=== PATIENT | female | born 1985 | race Caucasian/White ===

== ENCOUNTER 2016-05-27 13:12 | Observation (INO) | payer OTHER ==
[~2016-05-27] VITALS: Ht 149.9 cm; Wt 100.9 kg
--- NOTE | 2016-05-27 16:59 | DIAGNOSTIC IMAGING REPORT ---
PROCEDURE: XR CHEST 1 VIEW INDICATION: SHORTNESS OF BREATH TECHNIQUE: Portable AP view 04:37 p.m. COMPARISON: None. FINDINGS: Lungs are clear. Heart and mediastinum are normal. Thorax is normal. IMPRESSION: 1. Negative chest.
--- NOTE | 2016-05-27 19:23 | DIAGNOSTIC IMAGING REPORT ---
PROCEDURE: CTA THORAX WITH CONTRAST INDICATION: DYSPNEA, TACHYCARDIA, initial encounter TECHNIQUE: 60 ml of Isovue 370 was injected intravenously and axial images were obtained of the entire thorax with 3D sagittal and coronal MIP reconstructions. COMPARISON: Chest x-ray 05/27/2016 FINDINGS: No evidence of pulmonary emboli. No infiltrates. 3 mm right middle lobe ground-glass nodule (image 61), indeterminate but likely postinflammatory. Mild mediastinal, bilateral hilar and subcarinal adenopathy. No effusion. No dissection or aneurysm. Normal coronaries. Heart size is normal. Visualized upper abdomen is unremarkable. Bones are unremarkable. IMPRESSION: 1. No evidence of prior emboli, aortic dissection or aneurysm 2. Mild adenopathy, likely reactive 3. Results discussed with Dr. Razo
--- NOTE | 2016-05-27 19:47 | ED CLINICAL REPORT ---
Clinical Report - Physicians/Mid Levels [facility] [address] [place] [address] 05/27/2016 13:14 Patient: BERHANE WOLFE Time Seen: 13:22. Arrived- By private vehicle. Historian- patient. HISTORY OF PRESENT ILLNESS Chief Complaint: DYSPNEA, WHEEZING and HISTORY OF ASTHMA. This started yesterday and is still present. The dyspnea is described as moderate. The patient has had a cough. No sputum production, orthopnea or chest pain or discomfort. See nurses notes for current asthma threapy. Asthma triggers: allergies, infections and irritants. Takes asthma medications. Similar symptoms previously: Recent medical care: Not recently seen/assessed. REVIEW OF SYSTEMS No sore throat, nasal discharge, sinus drainage, fever or chills. No muscle aches, headache, palpitations, calf pain or nausea. No abdominal pain, diarrhea, black stools, difficulty with urination or excessive urination. No skin rash, enlarged lymph nodes, pedal edema, vomiting or bloody stools. No joint pain. All systems otherwise negative, except as recorded above. PAST HISTORY Problems: Asthma. Additional Surgeries: no known surgeries. Medications: Albuterol inhaler prn. Allergies: Sulfa Antibiotics. SOCIAL HISTORY Never smoker. History of drug use: marijuana. No alcohol use. ADDITIONAL NOTES The nursing notes have been reviewed. PHYSICAL EXAM Vital Signs: 05/27/2016 13:22 BP: 120/41. HR: 142. RR: 26. O2 saturation: 95%. Temp: 99.2 F. Pain level now: 0/10. Have been reviewed. Appearance: Alert. Patient in moderate distress. Eyes: Pupils equal, round and reactive to light. Eyes normal inspection. ENT: Nose normal. Neck: Normal inspection. CVS: Normal heart rate and rhythm. Heart sounds normal. Pulses normal. Respiratory: Mild respiratory distress with accessory muscle use. Speaks short phrases. Moderately prolonged expirations. Moderately decreased air movement diffusely over both lungs. Expiratory mild bilateral wheezes diffusely. Abdomen: Soft and nontender. Back: Normal inspection. Skin: Skin warm and dry. Normal skin color. No rash. Normal skin turgor. Extremities: Extremities exhibit normal ROM. No lower extremity edema. Neuro: Oriented X 3. No motor deficit. No sensory deficit. LABS, X-RAYS, AND EKG EKG: EKG time: (1701). No acute ischemia. Rate: 136. Tachycardia. Normal P waves. Normal DOMINGA. Normal QRS complex. Normal axis. Normal ST and T waves, QT and QTc. Prior EKG unavailable. The study has been interpreted contemporaneously by me. The study has been independently viewed by me. The EKG appears to be a good tracing. I agree with and confirm the computer reading of the EKG. Rhythm Strip #1: Time: (1310). Rate= 152. Sinus tachycardia. Regular rhythm. Narrow QRS complexes. No ectopy. Conduction normal. Normal ST segments and T waves. The study was interpreted by me. Chest X-ray: No acute disease. Normal lung markings present. Normal heart size. Mediastinum normal. Great vessels normal. Soft tissues normal. No infiltrate. No fracture. No bony lesion present. Views: AP (portable). Technique: good. The X-rays were independently viewed by me, interpreted by the radiologist and contemporaneously by me and discussed with the radiologist. Prior films were not available for comparison. Laboratory Tests: Serum Qualitative: (CHETAN: 05/27/2016 13:25) ( [facility] 05/27/2016 18:23) Final results Test Result Flag Units (Reference) , SERUM NEGATIVE CBC w Diff: (CHETAN: 05/27/2016 13:25) ( MsgRcvd 05/27/2016 16:43) Final results Test Result Flag Units (Reference) WHITE BLOOD COUNT 19.4 H K/uL (4.5-11.5) RED BLOOD COUNT 4.63 M/uL (4.00-5.20) HEMOGLOBIN 12.7 gm/dL (12.0-16.0) HEMATOCRIT 38.8 % (36.0-46.0) MEAN CELL VOLUME 84 fL (80-100) MEAN CORPUSCULAR HGB 27 pg (26-34) MEAN CORPUSCULAR HGB CONC 33 g/dL (31-37) RED CELL DISTRIBUTION WIDTH 14.3 % (11.6-14.8) PLATELET COUNT 553 H K/uL (150-400) NEUTROPHIL % 89.1 H % (50-75) LYMPH % 7.7 L % (25-40) MONO % 2.4 L % (3-14) EOSINOPHIL % 0.3 % (0-4) BASOPHIL % 0.5 % (0-2) [id number]: (CHETAN: 05/27/2016 13:25) ( [facility] 05/27/2016 16:49) Final results Test Result Flag Units (Reference) D-DIMER QUANTITATIVE < 0.27 L ug/mLFEU (0.27-0.52) The primary value of this quantitative assay relates toits negative predictive value (i.e. exclusion) of pulmonaryembolism/deep vein thrombosis/DIC.Elevated levels of d-dimer may also occur with:, age, cancer, inflammation, liver disease,post-op, infection, hematoma, coronary disease, peripheralarteriopathy, bleeding disorders and thrombolytic treatment.Results should be correlated with other clinical andradiological data.Testing Methodology: Latex Immunoassay Lactate, Serum: (CHETAN: 05/27/2016 18:05) ( [facility] 05/27/2016 19:22) Final results Test Result Flag Units (Reference) LACTIC ACID 4.1 H mmol/L (0.4-2.0) CRITICAL RESULTS CALLEDCalled to DUYEN MCGOVERN IN ED 05/27/161920Were 2 patient identifiers used? YWas the result read back? Y Troponin-I: (CHETAN: 05/27/2016 18:05) ( [facility] 05/27/2016 19:13) Final results Test Result Flag Units (Reference) TROPONIN I 0.09 ng/mL (0.00-1.5) TROPONIN REFERENCE RANGE:<0.1 NEGATIVE0.1-1.5 INDETERMINANT>1.5 POSITIVE CMP: (CHETAN: 05/27/2016 13:25) ( [facility] 05/27/2016 16:55) Final results Test Result Flag Units (Reference) GLUCOSE 130 H mg/dL (70-110) BUN 9 mg/dL (7-18) CREATININE 0.8 mg/dL (0.6-1.3) Estimated GFR >60 mL/min Estimated GFR- >60 mL/min Note: Persistent reduction over 3 months in eGFR<60 mL/min/1.73 m2 defines CKD. Patients with eGFR values>=60 mL/min/1.73 m2 may also have CKD if evidence ofpersistent proteinuria. Additional information may be foundat [email or web address].org. SODIUM 140 mmol/L (136-145) POTASSIUM 4.2 mmol/L (3.5-5.1) CHLORIDE 104 mmol/L (98-107) CARBON DIOXIDE 23 mmol/L (21-32) CALCIUM 8.7 mg/dL (8.5-10.1) TOTAL PROTEIN 7.4 g/dL (6.4-8.2) ALBUMIN 3.3 g/dL (3.3-5.0) BILIRUBIN, TOTAL 0.1 mg/dL (0.0-1.0) ALKALINE PHOSPHATASE 83 U/L (46-116) AST (SGOT) 25 U/L (15-37) ALT (SGPT) 34 U/L (12-78) Rapid Influenza Screen: (CHETAN: 05/27/2016 18:15) ( MsgRcvd 05/27/2016 18:34) Final results SPECIMEN DESCRIPTION: SWAB Test Result Flag Units (Reference) RAPID INFLUENZA SCREEN DATE: 05/27/16 INFLUENZA A: NEGATIVE SCREEN FOR INFLUENZA A INFLUENZA B: NEGATIVE SCREEN FOR INFLUENZA B . Pulse Oximetry: 05/27/2016 13:22 O2 saturation: 95%. (FIO2 - room air). Interpretation: normal. PROGRESS AND PROCEDURES Course of Care: PT was treated with a duoneb, as well as two albuterol nebs, with great improvement in her lung exam and work of breathing. However, pt's heart rate remained in the 130's to 150's, and pt stated she did not feel well. I did not feel this degree of tachycardia was due solely to the neb treatments. She was given doses of Ativan, which didn't seem to help. She was given IV fluids without improvement, and worked up with labs and a chest x-ray. She was found to have a WBC count of 19.4 and a lactate level of 4.1. Pt had reported not feeling ill prior to this event, and had no fever or obvious source of sepsis. I did feel she should be admitted for observation, at least, and Dr. Patel was agreeable. Critical care performed (60 minutes). Time is exclusive of separately billable procedures. Time includes: direct patient care, patient reassessment, coordination of patient care, interpretation of data (laboratory data, pulse oximetry, chest xrays and cardiac output measurements), review of patient's medical records, medical consultation and documentation of patient care- see progress notes. The patient required critical care due to the acute impairment of vital organ systems (cardiovascular and respiratory) and a high probability of imminent and life threatening deterioration. Multiple emergent and urgent interventions were required to prevent sudden life threatening deterioration. Family counseled in person several times regarding the patient's serious condition, test results, diagnosis and need for admission. Concerns were addressed. Old medical records reviewed. Disposition: Admitted to Acute Care. Condition: serious. CLINICAL IMPRESSION Lactic acidosis. Moderate persistent asthma with an acute exacerbation. Sinus tachycardia. (Electronically signed by Tiny Razo MD 06/01/2016 14:12)
--- NOTE | 2016-05-27 19:47 | ED ORDER SUMMARY ---
..... Patient: BERHANE WOLFE OrderSheet [facility] VisitID: [id number] [place] [address] 31y, F Registration Date/Time: 05/27/2016 ORDER SHEET Weight: 86.1 kg (stated) Allergies: Sulfa Antibiotics GENERAL ORDERS: Chest 1V Urgent (16:32 05/27/2016 Magdalena CESAR) (Ack 16:34 LTapper) (16:38 SStone R.N.) Pharmaceutical Operator (Continuous) (16:32 05/27/2016 Magdalena CESAR) (16:37 SStone R.N.) CBC w Diff Urgent (16:32 05/27/2016 Magdalena CESAR) (Ack 16:34 LTapper) (16:38 SStone R.N.) CMP Urgent (16:32 05/27/2016 Magdalena CESAR) (Ack 16:34 LTapper) (16:38 SStone R.N.) D-Dimer Urgent (16:32 05/27/2016 Magdalena CESAR) (Ack 16:34 LTapper) (16:38 SStone R.N.) Pulse oximeter (16:32 05/27/2016 Magdalena CESAR) (16:37 SStone R.N.) EKG - ER Stat (16:32 05/27/2016 Magdalena CESAR) (Ack 16:34 LTapper) (17:07 RKaruga) Rapid Influenza Screen (Nasal Pharyngeal) (swab) Urgent (18:11 05/27/2016 Magdalena CESAR) (18:21 SStone R.N.) (Ack 18:21 LTapper) CTA Thorax w Cont (No) (N/A) Urgent (18:12 05/27/2016 Magdalena CESAR) (Ack 18:21 LTapper) (18:37 JRomanelli R.N.) Troponin-I Urgent (18:13 05/27/2016 Magdalena CESAR) (Ack 18:21 LTapper) (18:39 SStone R.N.) Serum Qualitative Urgent (18:13 05/27/2016 Magdalena CESAR) (Ack 18:21 LTapper) (18:39 SStone R.N.) Lactate, Serum Urgent (18:13 05/27/2016 Magdalena CESAR) (Ack 18:21 LTapper) (18:39 SStone R.N.) Blood Culture (No) (N/A) Urgent (19:26 05/27/2016 Magdalena CESAR) (Ack 19:49 LTapper) (21:02 JRomanelli R.N.) UA-Culture if indicated Urgent (19:05/27/2016 Magdalena CESAR) (Ack 19:49 LTapper) (21:02 JRomanelli R.N.) PCT (Procalcitonin) Urgent (19:45 05/27/2016 Magdalena CESAR) (Ack 19:49 LTapper) (21:02 JRomanelli R.N.) Monoscreen Urgent (19:49 05/27/2016 Magdalena CESAR) (Ack 19:49 LTapper) (21:02 JRomanelli R.N.) Culture, Strep Screen Urgent (19:49 05/27/2016 Magdalena CESAR) (Ack 19:49 LTapper) (20:05 JRomanelli R.N.) MEDICATION ORDERS: DuoNeb Neb Tx 1 unit dose (NOW) (13:31 05/27/2016 Magdalena CESAR) (13:47 JZiglar) Albuterol Neb Tx 2 unit doses (NOW) (13:05/27/2016 Magdalena CESAR) (13:48 JZiglar) DuoNeb Neb Tx 1 unit dose (NOW) (19:45 05/27/2016 Magdalena CESAR) (Ack 19:53 HSoule) IV FLUIDS: Solu-MEDROL IV 125 mg (NOW) (13:32 05/27/2016 Magdalena CESAR) (13:38 SStone R.N.) Ativan IV 1 mg (HIGH ALERT MEDICATION, NOW) (13:39 05/27/2016 Magdalena CESAR) (Ack 13:56 SStone R.N.) (14:04 SStone R.N.) IV NS : initial bolus 1000 mL (1000 mL/hr), then none - (NOW) (16:32 05/27/2016 Magdalena CESAR) (16:39 SStone R.N.) Ativan IV 1 mg (HIGH ALERT MEDICATION, NOW) (16:32 05/27/2016 Magdalena CESAR) (16:39 SStone R.N.) Morphine IV 4 mg (HIGH ALERT MEDICATION, NOW) (18:14 05/27/2016 Magdalena CESAR) (Ack 18:38 SStone R.N.) (18:39 SStone R.N.) Solu-MEDROL IV 125 mg (NOW) (19:45 05/27/2016 Magdalena CESAR) (Ack 19:48 HSoule) (19:53 HSoule) IV NS : initial bolus 1000 mL (1000 mL/hr), then 1000 mL/hr (NOW) (19:50 05/27/2016 Magdalena CESAR) (Ack 19:53 HSoule) (20:04 Edgardo R.N.) ORDER SHEET NOTES: [Electronically signed by Prince Guillory R.N. (23:54 05/27/2016)] [Electronically signed by Tiny Razo MD (14:12 06/01/2016)] [Electronically locked/signed by Prince Guillory R.N. (23:54 05/27/2016)]
--- NOTE | 2016-05-27 19:47 | ED NURSING NOTES ---
Clinical Report - Nurses [facility] [place] [address] 05/27/2016 13:14 Patient: BERHANE WOLFE TRIAGE Triage time 13:22. Acuity: LEVEL 3. Chief Complaint: SHORTNESS OF BREATH, DIFFICULTY BREATHING and "ASTHMA ATTACK". --13:27 Yenny Nicole R.N. 13:22 05/27/16. BP: 120/41 (large adult cuff). HR: 142. RR: 26. O2 saturation: 95%. Temp: 99.2 F. Pain level now: 0/10. --13: Yenny Nicole R.N. Weight: 86.1 kg stated. Height/Length: 59 inches Per Patient. BMI: 38.4. --13: Yenny Nicole R.N. Medications Albuterol inhaler prn. --13:27 Yenny Nicole R.N. Allergies Sulfa Antibiotics. --13:27 Yenny Nicole R.N. History Arrived by private vehicle. Historian: patient. Accompanied by (asthma attack since yesterday, ran out of albuterol.). ( difficulty catching her breath.). This started yesterday. She has had wheezing. ( sore throat). PAST MEDICAL HX: Asthma. SOCIAL HX: History of drug use: marijuana. (marijuana daily). No alcohol use. No infectious disease exposure. SELF HARM ASSESSMENT: A self harm assessment was performed. The patient answered "no" to the question "Do you have thoughts of harming or killing yourself?". FALL RISK ASSESSMENT: Fall risk assessment completed. No fall risk identified. NUTRITIONAL RISK ASSESSMENT: The nutritional risk assessment revealed no deficiencies. FUNCTIONAL ASSESSMENT: Functional assessment: no impairments noted. LEARNING NEEDS ASSESSMENT: The learning needs assessment revealed no barriers. SKIN INTEGRITY ASSESSMENT: Skin integrity risk assessment completed. No skin integrity risk identified. --13:27 Yenny Nicole R.N. PROBLEMS: Asthma . --13:23 Yenny Nicole R.N. Interventions To treatment room. --13:27 Yenny Nicole R.N. PHYSICAL ASSESSMENT To room via wheelchair. GENERAL / NEURO / PSYCH: Alert. Oriented X 4. Appears anxious. RESPIRATORY: Moderate respiratory distress. The patient can speak a few words at a time. Accessory muscle use. Chest nontender. Wheezing present. CVS: Cardiac rhythm: sinus tachycardia. SKIN: Skin is warm. Skin is diaphoretic. --13:29 Yenny Nicole R.N. NURSING PROGRESS NOTES 13:28 05/27/2016 Site #1 started via IV in the right antecubital space with an 18g angiocath; one attempt. Blood drawn: rainbow set. Labeled in the presence of the patient and sent to the lab. Saline lock flushed with 10 mL saline. --13:28 Yenny Nicole R.N. Oxygen administered. Monitoring of patient in place. Blood samples drawn. Patient gowned. Head of bed elevated. Reassurance given. Call light placed in reach. Patient waiting for evaluation. --13:28 Yenny Nicole R.N. ( RT/MD at bedside.). --13:30 Yenny Nicole R.N. 13:38 05/27/2016 SOLU-MEDROL (MethylPREDNISolone Sodium Succ) IVP 125 mg given over 2 minute(s) via site #1. --13:38 Yenny Nicole R.N. 13:47 05/27/2016 Duoneb (Ipratropium-Albuterol) Neb TX Nebulizer 1 unit dose given. Given by the respiratory therapist. Allergies verified and confirmed 5 rights. Jonathan Wang --13:47 Jonathan Wang 13:48 05/27/2016 Albuterol Neb TX Nebulizer 2 unit dose given. Given by the respiratory therapist. Allergies verified and confirmed 5 rights. Jonathan Wang --13:48 Jonathan Wang 14:03 05/27/2016 Ativan (LORazepam) IVP 1 mg given over 2 minute(s) via site #1. Allergies verified, confirmed 5 rights and sedative warning given to the patient. IV patency established. IV site checked: no pain, redness, or swelling. IV flushed thoroughly pre- and post-medication administration (Pt. advised she will not be able to drive on [place]. Pt states her can pick her up.). --14:04 Yenny Nicole R.N. ( ativan admnistered. Pt. now resting quietly post medication.). --14:15 Yenny Nicole R.N. 14:00 05/27/16. BP: 110/48. HR: 153. RR: 24. O2 saturation: 97%. --14:15 Yenny Nicole R.N. Reassessment after intervention and medication administered. She is resting quietly. CVS: Cardiac rhythm: sinus tachycardia. SKIN: Skin color within normal limits. --14:16 Yenny Nicole R.N. 15:30 05/27/16. BP: 114/62. HR: 145. RR: 26. O2 saturation: 98%. Temp: 98.5 F. --15:50 Yenny Nicole R.N. Overall patient status is improved- she states feels better. Call light placed in reach. --15:50 Yenny Nicole R.N. 15:10 05/27/16. BP: 115/60. HR: 147. RR: 26. O2 saturation: 95%. --15:52 Yenny Nicole R.N. 16:24 05/27/2016 Started bag #1 1000 mL IV Fluids IV NS (Saline); at 1000 mL/hr over 1 hour(s) via site #1 --16:39 Yenny Nicole R.N. 16:39 05/27/2016 Ativan (LORazepam) IVP 1 mg given over 2 minute(s) via site #1. --16:39 Yenny Nicole R.N. 16:30 05/27/16. BP: 107/73. HR: 139. RR: 26. O2 saturation: 92%. --16:48 Yenny Nicole R.N. 16:48 05/27/16. O2 saturation: 94% at 2 liters/minute. --16:48 Yenny Nicole R.N. ( patient resting quietly, had reported increased difficulty in "catching her breath" after dose of Ativan patient is doing better.). --16:50 Yenny Nicole R.N. EKG time: (17:01). EKG was performed by a tech and shown to the ED physician. --17:03 Katherin Blanchard ( pt. assisted to the bathroom. C/O sob on return, sats 90%. Placed on 2l nc sats up to 95%.). --17:35 Yenny Nicole R.N. 17:10 05/27/16. BP: 113/58. HR: 141. O2 saturation: 94% at 2 liters/minute. --18:16 Yenny Nicole R.N. 16:40 05/27/16. BP: 113/54. HR: 137. RR: 22. O2 saturation: 95% at 2 liters/minute. --18:17 Yenny Nicole R.N. 16:25 05/27/16. BP: 107/73. HR: 140. RR: 29. O2 saturation: 96%. Temp: 98.7 F. --18:17 Yenny Nicole R.N. ( Rapid flu swab sent to lab.). --18:20 Yenny Nicole R.N. 18:27 05/27/16. BP: 123/73. HR: 141. O2 saturation: 94% at 2 liters/minute. --18:27 Yenny Nicole R.N. 18:29 05/27/2016 Morphine IVP 4 mg given over 2 minute(s) via site #1. Allergies verified, confirmed 5 rights and sedative warning given. IV patency established. IV site checked: no pain, redness, or swelling. IV flushed thoroughly pre- and post-medication administration. --18:39 Yenny Nicole R.N. 18:41 05/27/2016 IV Fluids IV NS Discontinued: bag #1 infused. Total amount infused: 1000 mL. IV patency established. IV site checked: no pain, redness, or swelling. IV flushed thoroughly. --18:41 Yenny Nicole R.N. 19:16 05/27/16. BP: 115/59. HR: 140. RR: 20. O2 saturation: 96% on room air. --19:16 Milady Thompson Critical value relayed to ED by Lab. Critical value received by Milady. Lactate level: 4.1. Critical value read back. Verified lab result and patient ID. ED physician notifed of critical value. --19:22 JayAlban beachnah ( Assisted up to restroom. Patient short of breath upon ambulation. Provider notified). --19:35 Milady Thompson 19:44 05/27/16. BP: 107/62. HR: 134. RR: 18. O2 saturation: 92% on room air. Temp: 99.2 F. Pain level now: 10. Additional comments: Body aches, "everywhere.". --19:46 Prince Guillory R.N. 19:53 05/27/2016 SOLU-MEDROL (MethylPREDNISolone Sodium Succ) IVP 125 mg given over 2 minute(s) via site #1. Allergies verified and confirmed 5 rights. IV patency established. IV site checked: no pain, redness, or swelling. IV flushed thoroughly pre- and post-medication administration. IVP given by RN. --19:53 Alban Thompsonnah <<STRICKEN ENTRY-- 19:59 05/27/2016 Started bag #1 1000 mL IV Fluids IV NS (Saline); at 999 mL/hr over 60 minute(s) via site #1 via IV pump. Allergies verified and confirmed 5 rights. IV patency established. IV site checked: no pain, redness, or swelling. IV flushed thoroughly pre- and post-medication administration. --20:04 Prince Guillory R.N. --END STRIKE>> Correction. --21:05 Prince Guillory R.N. 19:59 05/27/2016 Started bag #2 1000 IV Fluids IV NS (Saline); at 999 mL/hr over 60 minute(s) via site #1 via IV pump. Allergies verified and confirmed 5 rights. IV patency established. IV site checked: no pain, redness, or swelling. IV flushed thoroughly pre- and post-medication administration. --21:05 Prince Guillory R.N. 20:59 05/27/2016 IV Fluids IV NS Bag Change: bag #2 infused. Total amount infused: 1000. STARTED bag #3 (1000 mL) at 999 mL/hr via IV pump. Confirmed 5 rights. IV patency established. IV site checked: no pain, redness, or swelling. IV flushed thoroughly. --21:04 Prince Guillory R.N. 21:12 05/27/2016 Site #[address] upon admission; patent, no pain and no signs of infection or infiltration. Flushed with 10 mL saline; flushes easily. --23:49 Prince Guillory R.N. 21:12 05/27/2016 IV Fluids IV NS Continued: upon admission at the rate of 1000 mL/hr. 900 mL remaining bag #3. IV patency established. IV site checked: no pain, redness, or swelling. IV flushed thoroughly. --23:49 Prince Guillory R.N. DISPOSITION / DISCHARGE 21:06 05/27/16. BP: 119/60. HR: 134. RR: 18. O2 saturation: 96% on nasal cannula at 2 liters/minute. Temp: 99.2 F (oral). Pain level now: 0/10. --21:08 Prince Guillory R.N. Departure time: 2111. --23:46 Prince Guillory R.N. 21:12. Admitted to Acute Care. Transported via stretcher. Report was given to a nurse via a phone call. Report included patient's care, treatment, medications, reviewed medication reconcilliation, and condition (including any recent changes or anticipated changes). All questions were answered. Report was acknowledged and care was transferred. Patient's personal items; items were placed in belongings bag and transported with the patient. --23:47 Prince Guillory R.N. Locked/Released at 05/27/2016 23:54 by Prince Guillory R.N.
--- NOTE | 2016-05-27 19:47 | ED ORDER SUMMARY ---
..... Patient: BERHANE WOLFE OrderSheet [facility] VisitID: [id number] [place] [address] 31y, F Registration Date/Time: 05/27/2016 ORDER SHEET Weight: 86.1 kg (stated) Allergies: Sulfa Antibiotics GENERAL ORDERS: Chest 1V Urgent (16:32 05/27/2016 Magdalena CESAR) (Ack 16:34 LTapper) (16:38 SStone R.N.) New Car Make Ready Mechanic (Continuous) (16:32 05/27/2016 Magdalena CESAR) (16:37 SStone R.N.) CBC w Diff Urgent (16:32 05/27/2016 Magdalena CESAR) (Ack 16:34 LTapper) (16:38 SStone R.N.) CMP Urgent (16:32 05/27/2016 Magdalena CESAR) (Ack 16:34 LTapper) (16:38 SStone R.N.) D-Dimer Urgent (16:32 05/27/2016 Magdalena CESAR) (Ack 16:34 LTapper) (16:38 SStone R.N.) Pulse oximeter (16:32 05/27/2016 Magdalena CESAR) (16:37 SStone R.N.) EKG - ER Stat (16:32 05/27/2016 Magdalena CESAR) (Ack 16:34 LTapper) (17:07 RKaruga) Rapid Influenza Screen (Nasal Pharyngeal) (swab) Urgent (18:11 05/27/2016 Magdalena CESAR) (18:21 SStone R.N.) (Ack 18:21 LTapper) CTA Thorax w Cont (No) (N/A) Urgent (18:12 05/27/2016 Magdalena CESAR) (Ack 18:21 LTapper) (18:37 JRomanelli R.N.) Troponin-I Urgent (18:13 05/27/2016 Magdalena CESAR) (Ack 18:21 LTapper) (18:39 SStone R.N.) Serum Qualitative Urgent (18:13 05/27/2016 Magdalena CESAR) (Ack 18:21 LTapper) (18:39 SStone R.N.) Lactate, Serum Urgent (18:13 05/27/2016 Magdalena CESAR) (Ack 18:21 LTapper) (18:39 SStone R.N.) Blood Culture (No) (N/A) Urgent (19:26 05/27/2016 Magdalena CESAR) (Ack 19:49 LTapper) (21:02 JRomanelli R.N.) UA-Culture if indicated Urgent (19:05/27/2016 Magdalena CESAR) (Ack 19:49 LTapper) (21:02 JRomanelli R.N.) PCT (Procalcitonin) Urgent (19:45 05/27/2016 Magdalena CESAR) (Ack 19:49 LTapper) (21:02 JRomanelli R.N.) Monoscreen Urgent (19:49 05/27/2016 Magdalena CESAR) (Ack 19:49 LTapper) (21:02 JRomanelli R.N.) Culture, Strep Screen Urgent (19:49 05/27/2016 Magdalena CESAR) (Ack 19:49 LTapper) (20:05 JRomanelli R.N.) MEDICATION ORDERS: DuoNeb Neb Tx 1 unit dose (NOW) (13:31 05/27/2016 Magdalena CESAR) (13:47 JZiglar) Albuterol Neb Tx 2 unit doses (NOW) (13:05/27/2016 Magdalena CESAR) (13:48 JZiglar) DuoNeb Neb Tx 1 unit dose (NOW) (19:45 05/27/2016 Magdalena CESAR) (Ack 19:53 HSoule) IV FLUIDS: Solu-MEDROL IV 125 mg (NOW) (13:32 05/27/2016 Magdalena CESAR) (13:38 SStone R.N.) Ativan IV 1 mg (HIGH ALERT MEDICATION, NOW) (13:39 05/27/2016 Magdalena CESAR) (Ack 13:56 SStone R.N.) (14:04 SStone R.N.) IV NS : initial bolus 1000 mL (1000 mL/hr), then none - (NOW) (16:32 05/27/2016 Magdalena CESAR) (16:39 SStone R.N.) Ativan IV 1 mg (HIGH ALERT MEDICATION, NOW) (16:32 05/27/2016 Magdalena CESAR) (16:39 SStone R.N.) Morphine IV 4 mg (HIGH ALERT MEDICATION, NOW) (18:14 05/27/2016 Magdalena CESAR) (Ack 18:38 SStone R.N.) (18:39 SStone R.N.) Solu-MEDROL IV 125 mg (NOW) (19:45 05/27/2016 Magdalena CESAR) (Ack 19:48 HSoule) (19:53 HSoule) IV NS : initial bolus 1000 mL (1000 mL/hr), then 1000 mL/hr (NOW) (19:50 05/27/2016 Magdalena CESAR) (Ack 19:53 HSoule) (20:04 Edgardo R.N.) ORDER SHEET NOTES: [Electronically signed by Prince Guillory R.N. (23:54 05/27/2016)] [Electronically signed by Tiny Razo MD (14:12 06/01/2016)] [Electronically locked/signed by Prince Guillory R.N. (23:54 05/27/2016)]
--- NOTE | 2016-05-27 20:24 | Progress Note ---
Subjective General 26 y.o female with hx of cough really bad and hx of asthma. Smokes a lot of THC and likely flare of asthma related to this. Will have her admitted with elevated WBC and lactic acid and then monitor on labs, blood cx and re check in am. Similar episode 1 month ago at [facility] per patient.
--- NOTE | 2016-05-27 21:23 | HISTORY AND PHYSICAL ---
ADMITTED: 05/27/2016 CHIEF COMPLAINT: 1. Shortness of breath 2. Wheeze HISTORY OF PRESENT ILLNESS: The patient states that yesterday she started coughing and then she started having increased wheezing and shortness of breath. She used her nebulizer and inhalers multiple times and had severe cough around 2:00 o'clock this p.m., could not breathe, and so she went into the emergency department for evaluation. She says about a month ago she had similar symptoms and ended up admitted to the hospital at [facility] for about 3 days. She denies any previous history of intubation; however, while she was at [facility], she had about 3 ABGs, she states, and also workup that was uneventful, and they essentially did not know what was going on, but she presented just like this. MEDICAL/SURGICAL HISTORY: Past medical history: She has had asthma, kidney stones. Past surgical history: Three C-sections. MEDICATIONS: 1. Albuterol. 2. History of Xanax and then venlafaxine, but both were stopped by her new primary doctor at [facility] recently. ALLERGIES: 1. AMOXICILLIN. 2. PENICILLIN. 3. SULFA. 4. SHELLFISH. SOCIAL HISTORY: She denies alcohol, drugs, or tobacco; however, she is a fairly strong THC smoker. FAMILY HISTORY: Mother is alive and well. Father has diabetes, hypertension, heart disease, and strokes. PRIMARY CARE PHYSICIAN: Her primary doctor is [facility]. REVIEW OF SYSTEMS: She states she has had the cough, shortness of breath, wheezing. She has had anxiety. She denies any fevers or chills. She denies any nausea, vomiting, diarrhea. Otherwise her review of systems is negative. HER CODE STATUS IS FULL. PHYSICAL EXAMINATION: GENERAL: She is an alert female, who is able to talk in full sentences, in no significant distress. VITAL SIGNS: Blood pressure 120/41, heart rate of 142, respirations 26, saturating 95% on 2 liters, her temperature is 99.2. HEENT: Extraocular movements intact. Pupils equal, round, react to light. Oropharynx is clear with moist mucous membranes. NECK: Supple without lymphadenopathy. LUNGS: With coarse breath sounds. Soft wheeze, but great air movement. No significant increased work of breathing on watching her ribs. HEART: Regular rate and rhythm. No murmur. ABDOMEN: Soft, obese, nontender, nondistended. EXTREMITIES: No significant edema. GENITOURINARY: Deferred. RECTAL: Deferred. BREASTS: Deferred. NEUROLOGIC: Cranial nerves II-XII intact. Strength and sensation grossly intact. LAB/IMAGING: EKG shows sinus tachycardia. Chest x-ray is normal. CBC: White count of 19.4, hematocrit 38.8, and platelets of 553. Glucose of 130 , BUN of 9, creatinine is 0.8, sodium 140, potassium 4.2, chloride of 104, HCO3 23, calcium 8.7, total protein 7.4, albumin of 3.3. Bilirubin 0.1, alkaline phosphatase 83, AST of 25, ALT 34. D-dimer less than 0.27. screen negative Procalcitonin less than 0.5. A mono screen was negative. Lactic acid was 4.1. Troponin I was 0.09. CTA shows no evidence of prior emboli, aortic dissection, or aneurysm. Mild adenopathy, reactive, likely. Flu screen was negative for A and B. Urinalysis was negative with a specific gravity of 1.005. IMPRESSION: 1. This is a 31-year-old female, who has a known history of asthma and similar symptoms about a month ago with a large workup and hospitalization and presents to the emergency department today with shortness of breath, wheezing, cannot breathe, and anxiety. I suspect that much of her trigger is likely her marijuana use and discussed this in length and that, if she has to use the marijuana, I do not recommend it because of her anxiety and mental issues, but I would recommend that ingesting over any inhalation as is causing her likely to flare her asthma and her symptoms. 2. Currently, she has significant tachycardia- likely related to her albuterol and anxiety. Will watch at this time no symptoms and hold on tele unless any signs of distress. PLAN: We will treat her with Xopenex and also Atrovent inhalers, and anticipate that she will have improvement in her labs and likely discharge tomorrow as long as she has improved.
[2016-05-27 21:32] VITALS: BP 117/59
--- NOTE | 2016-05-27 22:31 | NUR ---
PT ARRIVED AROUND 0 TO FLOOR VIA GURNEY FROM THE ED. PT IS A&OX3, LS COARSE AND WHEEZY IN THE BASES, HR IS TACHY AT 132 BPM AND BT ACTIVE. NO C/O PAIN OR NAUSEA. AMBUALTING IND AROUND ROOM ON 2L O2. NO SOB CURRENTLY. ADMIT PAPERS COMPLETE. RESTING W/ CALL LIGHT IN REACH.
[2016-05-27 23:32] VITALS: BP 109/59
--- NOTE | 2016-05-28 01:08 | NUR ---
Patient asleep at beginning of shift, sleepy when responding to questions but will follow directions. Denies SOB, wheezing and coarse sounds throughout. 1.5 L NC currently. Ambulated to bathroom well with clear yellow urine. States feeling anxious but can tolerate current level. Bouts of elevated HR today and monitoring status through night. Call light with patient , bed low and locked.
[2016-05-28 03:40] VITALS: BP 115/72
--- NOTE | 2016-05-28 03:53 | NUR ---
PATIENT REMOVED NC STATING THAT IT CAUSED NOSE TO RUN. BEGAN TO C/O PAIN IN R KIDNEY AND URINE SMELLING LIKE CAT PEE. PT FELL ASLEEP PRIOR TO LEAVING ROOM AND IS CURRENTLY SNORING. WCTM PAIN IN KIDNEY AND OTHER SX.
[2016-05-28 06:53] VITALS: BP 123/68
[2016-05-28 10:19] VITALS: BP 136/81
[2016-05-28] MEDS ORDERED: ZITHROMAX250 MG PO (11:27)
--- NOTE | 2016-05-28 11:29 | Provider's Discharge Care Plan ---
Problem, Goal, Plan Problem List 1. Asthma Goals: Improved health/wellness Instructions: Follow up as directed, Take meds as directed 2. Bronchitis Goals: Improved health/wellness, Therapeutic intervention Instructions: Follow up as directed, Take meds as directed 3. Tetrahydrocannabinol (THC) use disorder, mild, abuse Goals: Avoid smoking marijuana Instructions: Follow up as directed 4. Anxiety Goals: Improve disease control Instructions: Follow up as directed, Take meds as directed
[2016-05-28] MEDS ORDERED: ALBUTEROL HFA60 DOSE IN (11:36)
[2016-05-28] MEDS ORDERED: PREDNISONE20 MG PO (11:36)
--- NOTE | 2016-05-28 13:24 | NUR ---
AMBULATED WITH PT ON ROOM AIR AND AFTER WALKING ONE LOOP AROUND, HER SAO2 WAS 95% BUT HER HEARTRATE WASA 140, DR GIBSON NOTIFIED.
[2016-05-28 14:53] VITALS: BP 124/71
--- NOTE | 2016-05-28 15:50 | NUR ---
Patient was discharged, she was walked down wtih her and a factility electrical maintenance technician. She was given all her discharge paper work, perscriptions, and follow up appointment information. All lines/ IV were DC.
--- NOTE | 2016-05-29 01:58 | DISCHARGE SUMMARY ---
ADMIT DATE: 05/27/2016 DISCHARGE DATE: 05/28/2016 ADMISSION DIAGNOSES: 1. Asthmatic exacerbation 2. Marijuana use 3. Chronic sinus tachycardia 4. Anxiety DISCHARGE DIAGNOSES: 1. Asthmatic exacerbation 2. Marijuana use 3. Chronic sinus tachycardia 4. Anxiety 5. Bronchitis BRIEF HISTORY: This is a 31-year-old female who was admitted to [place] approximately 1 month ago with significant elevation in white blood cell count and lactic acid. After being hospitalized for several days on IV antibiotics, no diagnosis was made and the patient was gradually improving on her own and so, therefore, was discharged home without any antibiotics or other interventions. The patient stated that she had initially improved over the last couple of weeks, but then had gotten worse over the last week again, and presented to the emergency department again. She states that she has been coughing, wheezing, and short of breath. She had used her inhalers multiple times overnight and continued to feel like she could not breathe. The patient has continued to smoke marijuana despite the recommendations that she not smoke marijuana upon leaving [place] a month ago. HOSPITAL COURSE: The patient was monitored in the hospital overnight and she was initially hypoxic; however, this resolved and she was no longer hypoxic after only 12 hours of hospitalization. The patient remained tachycardic throughout her entire hospitalization; but after reviewing the records down at [facility], she was tachycardic down there as well. The patient states that she is always tachycardic due to her untreated anxiety. We spoke briefly about her anxiety; however, she states that she has taken all of the regular antianxiety medications. The benzodiazepines work best for her, and her doctor has refused to use them to help control her anxiety. The patient's white blood cell count and lactic acid are actually steadily improving since her hospitalization down at [place]. She states that today on the day of discharge she does feel significantly improved after receiving antibiotics, the albuterol inhalers, and steroids. On physical examination at the time of discharge, blood pressure is 124/71, pulse is 128, respiratory rate is 18, O2 saturation is 96% on room air, T-max is 36.8 degrees Celsius. This is a well-appearing female sitting anxiously in bed. Head is atraumatic, normocephalic. Trachea is midline. Lungs are clear to auscultation bilaterally. Heart S1, S2, regular rhythm, mildly tachycardic. No S3, S4, murmurs, gallops, or rubs. Abdomen is soft, nontender, nondistended without hepatosplenomegaly. No masses. Bowel sounds are active. There is no peripheral edema. DISCHARGE INSTRUCTIONS/MEDICATIONS: 1. Discharge plan: The patient was discharged home with instructions to follow up with her primary care provider within 2 days. She is also advised to return to the emergency department if she feels worse at all. She very adamantly demanded being discharged today. 2. Activity: Up ad arvin. No smoking marijuana. 3. Diet: Regular. 4. Medications: a. Albuterol HFA 90 mcg 2 puffs inhaled q.4 hours p.r.n. wheezing. b. Prednisone 40 mg p.o. daily x5 days. c. Azithromycin 500 mg p.o. once, then 250 mg p.o. daily after that.
--- NOTE | 2016-05-29 01:58 | DISCHARGE SUMMARY ---
ADMIT DATE: 05/27/2016 DISCHARGE DATE: 05/28/2016 ADMISSION DIAGNOSES: 1. Asthmatic exacerbation 2. Marijuana use 3. Chronic sinus tachycardia 4. Anxiety DISCHARGE DIAGNOSES: 1. Asthmatic exacerbation 2. Marijuana use 3. Chronic sinus tachycardia 4. Anxiety 5. Bronchitis BRIEF HISTORY: This is a 31-year-old female who was admitted to [place] approximately 1 month ago with significant elevation in white blood cell count and lactic acid. After being hospitalized for several days on IV antibiotics, no diagnosis was made and the patient was gradually improving on her own and so, therefore, was discharged home without any antibiotics or other interventions. The patient stated that she had initially improved over the last couple of weeks, but then had gotten worse over the last week again, and presented to the emergency department again. She states that she has been coughing, wheezing, and short of breath. She had used her inhalers multiple times overnight and continued to feel like she could not breathe. The patient has continued to smoke marijuana despite the recommendations that she not smoke marijuana upon leaving [place] a month ago. HOSPITAL COURSE: The patient was monitored in the hospital overnight and she was initially hypoxic; however, this resolved and she was no longer hypoxic after only 12 hours of hospitalization. The patient remained tachycardic throughout her entire hospitalization; but after reviewing the records down at [facility], she was tachycardic down there as well. The patient states that she is always tachycardic due to her untreated anxiety. We spoke briefly about her anxiety; however, she states that she has taken all of the regular antianxiety medications. The benzodiazepines work best for her, and her doctor has refused to use them to help control her anxiety. The patient's white blood cell count and lactic acid are actually steadily improving since her hospitalization down at [place]. She states that today on the day of discharge she does feel significantly improved after receiving antibiotics, the albuterol inhalers, and steroids. On physical examination at the time of discharge, blood pressure is 124/71, pulse is 128, respiratory rate is 18, O2 saturation is 96% on room air, T-max is 36.8 degrees Celsius. This is a well-appearing female sitting anxiously in bed. Head is atraumatic, normocephalic. Trachea is midline. Lungs are clear to auscultation bilaterally. Heart S1, S2, regular rhythm, mildly tachycardic. No S3, S4, murmurs, gallops, or rubs. Abdomen is soft, nontender, nondistended without hepatosplenomegaly. No masses. Bowel sounds are active. There is no peripheral edema. DISCHARGE INSTRUCTIONS/MEDICATIONS: 1. Discharge plan: The patient was discharged home with instructions to follow up with her primary care provider within 2 days. She is also advised to return to the emergency department if she feels worse at all. She very adamantly demanded being discharged today. 2. Activity: Up ad arvin. No smoking marijuana. 3. Diet: Regular. 4. Medications: a. Albuterol HFA 90 mcg 2 puffs inhaled q.4 hours p.r.n. wheezing. b. Prednisone 40 mg p.o. daily x5 days. c. Azithromycin 500 mg p.o. once, then 250 mg p.o. daily after that.
--- NOTE | 2016-06-01 14:13 | ED MAR SUMMARY ---
..... Medication Administration Record [facility] [address] [place] [address] Patient: BERHANE WOLFE Visit ID: [id number] 31y, F Weight: 86.1 kg Height/Length: 59 in BMI: 38.4 ALLERGIES: Sulfa Antibiotics Given 13:38 05/27/2016 Yenny Nicole R.N. Medication Administered: SOLU-MEDROL [IVP] (METHYLPREDNISOLONE SODIUM SUCC), Dose: 125 mg IVP over 2 minute(s), Site: #1 right AC. Medication Ordered: Solu-MEDROL IV 125 mg (NOW). Given 13:47 05/27/2016 Jonathan Wang, Medication Administered: DUONEB [NEB TX] (IPRATROPIUM-ALBUTEROL), Dose: 1 unit dose Nebulizer Neb TX. Medication Ordered: DuoNeb Neb Tx 1 unit dose (NOW). Given 13:48 05/27/2016 Jonathan Wang, Medication Administered: ALBUTEROL [NEB TX], Dose: 2 unit dose Nebulizer Neb TX. Medication Ordered: Albuterol Neb Tx 2 unit doses (NOW). Given 14:03 05/27/2016 Yenny Nicole R.N. Medication Administered: ATIVAN [IVP] (LORAZEPAM), Dose: 1 mg IVP over 2 minute(s), Site: #1 right AC. Medication Ordered: Ativan IV 1 mg (HIGH ALERT MEDICATION, NOW). Start 16:24 05/27/2016 Yenny Nicole R.N., Stop 18:41 05/27/2016 Yenny Nicole R.N. Medication Administered: IV NS (SALINE), Dose: IV Fluids over 1 hour(s), Rate: 1000 mL/hr, Dispensed: 1000 mL bag, Site: #1 right AC. Medication Ordered: IV NS : initial bolus 1000 mL (1000 mL/hr), then none - (NOW). Given 16:39 05/27/2016 Yenny Nicole R.N. Medication Administered: ATIVAN [IVP] (LORAZEPAM), Dose: 1 mg IVP over 2 minute(s), Site: #1 right AC. Medication Ordered: Ativan IV 1 mg (HIGH ALERT MEDICATION, NOW). Given 18:29 05/27/2016 Yenny Nicole R.N. Medication Administered: MORPHINE [IVP], Dose: 4 mg IVP over 2 minute(s), Site: #1 right AC. Medication Ordered: Morphine IV 4 mg (HIGH ALERT MEDICATION, NOW). Given 19:53 05/27/2016 Milady Thompson, Medication Administered: SOLU-MEDROL [IVP] (METHYLPREDNISOLONE SODIUM SUCC), Dose: 125 mg IVP over 2 minute(s), Site: #1 right AC. Medication Ordered: Solu-MEDROL IV 125 mg (NOW). Start 19:59 05/27/2016 Prince Guillory RNoreen, Continued Upon Admission 21:12 05/27/2016 Prince Guillory R.N. Medication Administered: IV NS (SALINE), Dose: IV Fluids over 60 minute(s), Rate: 999 mL/hr, Dispensed: 1000 mL bag, Site: #1 right AC. Medication Ordered: IV NS : initial bolus 1000 mL (1000 mL/hr), then 1000 mL/hr (NOW).
--- NOTE | 2016-06-01 14:13 | ED MAR SUMMARY ---
..... Medication Administration Record [facility] [address] [place] [address] Patient: BERHANE WOLFE Visit ID: [id number] 31y, F Weight: 86.1 kg Height/Length: 59 in BMI: 38.4 ALLERGIES: Sulfa Antibiotics Given 13:38 05/27/2016 Yenny Nicole R.N. Medication Administered: SOLU-MEDROL [IVP] (METHYLPREDNISOLONE SODIUM SUCC), Dose: 125 mg IVP over 2 minute(s), Site: #1 right AC. Medication Ordered: Solu-MEDROL IV 125 mg (NOW). Given 13:47 05/27/2016 Jonathan Wang, Medication Administered: DUONEB [NEB TX] (IPRATROPIUM-ALBUTEROL), Dose: 1 unit dose Nebulizer Neb TX. Medication Ordered: DuoNeb Neb Tx 1 unit dose (NOW). Given 13:48 05/27/2016 Jonathan Wang, Medication Administered: ALBUTEROL [NEB TX], Dose: 2 unit dose Nebulizer Neb TX. Medication Ordered: Albuterol Neb Tx 2 unit doses (NOW). Given 14:03 05/27/2016 Yenny Nicole R.N. Medication Administered: ATIVAN [IVP] (LORAZEPAM), Dose: 1 mg IVP over 2 minute(s), Site: #1 right AC. Medication Ordered: Ativan IV 1 mg (HIGH ALERT MEDICATION, NOW). Start 16:24 05/27/2016 Yenny Nicole R.N., Stop 18:41 05/27/2016 Yenny Nicole R.N. Medication Administered: IV NS (SALINE), Dose: IV Fluids over 1 hour(s), Rate: 1000 mL/hr, Dispensed: 1000 mL bag, Site: #1 right AC. Medication Ordered: IV NS : initial bolus 1000 mL (1000 mL/hr), then none - (NOW). Given 16:39 05/27/2016 Yenny Nicole R.N. Medication Administered: ATIVAN [IVP] (LORAZEPAM), Dose: 1 mg IVP over 2 minute(s), Site: #1 right AC. Medication Ordered: Ativan IV 1 mg (HIGH ALERT MEDICATION, NOW). Given 18:29 05/27/2016 Yenny Nicole R.N. Medication Administered: MORPHINE [IVP], Dose: 4 mg IVP over 2 minute(s), Site: #1 right AC. Medication Ordered: Morphine IV 4 mg (HIGH ALERT MEDICATION, NOW). Given 19:53 05/27/2016 Milady Thompson, Medication Administered: SOLU-MEDROL [IVP] (METHYLPREDNISOLONE SODIUM SUCC), Dose: 125 mg IVP over 2 minute(s), Site: #1 right AC. Medication Ordered: Solu-MEDROL IV 125 mg (NOW). Start 19:59 05/27/2016 Prince Guillory RNoreen, Continued Upon Admission 21:12 05/27/2016 Prince Guillory R.N. Medication Administered: IV NS (SALINE), Dose: IV Fluids over 60 minute(s), Rate: 999 mL/hr, Dispensed: 1000 mL bag, Site: #1 right AC. Medication Ordered: IV NS : initial bolus 1000 mL (1000 mL/hr), then 1000 mL/hr (NOW).
--- NOTE | 2016-06-01 14:13 | ED DISCHARGE INSTRUCTIONS ---
Patient: BERHANE WOLFE General Instructions [facility] VisitID: [id number] [address] [place] [address] 31y, F Registration Date/Time: 05/27/2016 Lactic acidosis. Moderate persistent asthma with an acute exacerbation. Sinus tachycardia. (Electronically signed by Tiny Razo MD 06/01/2016 14:12)
--- NOTE | 2016-06-01 14:13 | ED MED RECONCILIATION SUMMARY ---
Patient: BERHANE WOLFE Medication Reconciliation Report [facility] VisitID: [id number] [place] [address] 31y, F Registration Date/Time: 05/27/2016 Weight: 86.1 kg Height/Length: 59 in. BMI: 38.4 ALLERGIES: Sulfa Antibiotics The patient's Home Medications are listed below: THE FOLLOWING MEDICATIONS NEED TO BE RECONCILED: Albuterol inhaler prn The source(s) of the original Home Medication information: Not obtained. The following Medications were given to the patient in the Emergency Department: SOLU-MEDROL [IVP] IVP 125 mg, administered: 05/27/2016 1:38:00 PM Duoneb [Neb Tx] Neb TX 1 unit dose, administered: 05/27/2016 1:47:00 PM Albuterol [Neb Tx] Neb TX 2 unit dose, administered: 05/27/2016 1:48:00 PM Ativan [IVP] IVP 1 mg, administered: 05/27/2016 2:03:00 PM IV NS IV Fluids bolus 0, then 1000 mL/hr, administered: 05/27/2016 4:24:00 PM Ativan [IVP] IVP 1 mg, administered: 05/27/2016 4:39:00 PM Morphine [IVP] IVP 4 mg, administered: 05/27/2016 6:29:00 PM SOLU-MEDROL [IVP] IVP 125 mg, administered: 05/27/2016 7:53:00 PM IV NS IV Fluids bolus 0, then 999 mL/hr, administered: 05/27/2016 7:59:00 PM The following Medications were prescribed to the patient: None.
--- NOTE | 2016-06-01 14:13 | ED DISCHARGE INSTRUCTIONS ---
Patient: BERHANE WOLFE General Instructions [facility] VisitID: [id number] [address] [place] [address] 31y, F Registration Date/Time: 05/27/2016 Lactic acidosis. Moderate persistent asthma with an acute exacerbation. Sinus tachycardia. (Electronically signed by Tiny Razo MD 06/01/2016 14:12)
--- NOTE | 2016-06-01 14:13 | ED MED RECONCILIATION SUMMARY ---
Patient: BERHANE WOLFE Medication Reconciliation Report [facility] VisitID: [id number] [place] [address] 31y, F Registration Date/Time: 05/27/2016 Weight: 86.1 kg Height/Length: 59 in. BMI: 38.4 ALLERGIES: Sulfa Antibiotics The patient's Home Medications are listed below: THE FOLLOWING MEDICATIONS NEED TO BE RECONCILED: Albuterol inhaler prn The source(s) of the original Home Medication information: Not obtained. The following Medications were given to the patient in the Emergency Department: SOLU-MEDROL [IVP] IVP 125 mg, administered: 05/27/2016 1:38:00 PM Duoneb [Neb Tx] Neb TX 1 unit dose, administered: 05/27/2016 1:47:00 PM Albuterol [Neb Tx] Neb TX 2 unit dose, administered: 05/27/2016 1:48:00 PM Ativan [IVP] IVP 1 mg, administered: 05/27/2016 2:03:00 PM IV NS IV Fluids bolus 0, then 1000 mL/hr, administered: 05/27/2016 4:24:00 PM Ativan [IVP] IVP 1 mg, administered: 05/27/2016 4:39:00 PM Morphine [IVP] IVP 4 mg, administered: 05/27/2016 6:29:00 PM SOLU-MEDROL [IVP] IVP 125 mg, administered: 05/27/2016 7:53:00 PM IV NS IV Fluids bolus 0, then 999 mL/hr, administered: 05/27/2016 7:59:00 PM The following Medications were prescribed to the patient: None.
== END 2016-05-28 15:45 | disposition home or self-care (01) ==
LOC: ED SRH 13:12 → TRANS SRH 19:57 → ACUTE2 SRH 21:53
PROVIDERS: ADMIT Family Medicine
DX: J45.41 Moderate persistent asthma with (acute) exacerbation (principal); J40 Bronchitis, not specified as acute or chronic; E87.2 Acidosis; F41.9 Anxiety disorder, unspecified
CPT/HCPCS: 29230; 29253; 90004; 90047; 90065; 90074; 90100; 90154; 90159; 90616; 91400; 91556; 92031; 93004; 95059; 98370; 98428

== ENCOUNTER 2016-07-21 20:50 | Emergency (ER) | payer OTHER ==
[~2016-07-21 20:50] MED LIST: ALBUTEROL HFA60 DOSE IN; PREDNISONE20 MG PO; ZITHROMAX250 MG PO
--- NOTE | 2016-07-21 22:51 | ED CLINICAL REPORT ---
Clinical Report - Physicians/Mid Levels [facility] [address] [place] [address] 07/21/2016 20:51 Patient: BERHANE WOLFE Time Seen: 21:05; initial patient contact, initial documentation, patient care assumed. Arrived- By private vehicle. Historian- patient. HISTORY OF PRESENT ILLNESS Chief Complaint: FLANK PAIN. At its maximum, severity described as severe. When seen in the E.D., severity described as severe. Modifying factors- worsened by deep breaths. Not relieved by anything. It is described as "pain" and it is described as located in the left upper quadrant and left abdomen and the left flank. 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 The patient has had nausea. No loss of appetite or diarrhea. She has had vomiting. The vomiting has occurred numerous times. No bilious emesis, feculent emesis, blood-tinged emesis, coffee-grounds emesis or frankly bloody emesis. No unusually dark emesis. No recent travel. Similar symptoms previously: Frequently, worse. ( pain feels similar to her kidney stone pain). Recent medical care: Not recently seen/assessed. REVIEW OF SYSTEMS No constipation, black stools, hematemesis, difficulty with urination or pain with urination. No urinary frequency, bloody stools, fever, chest pain or difficulty breathing. All systems otherwise negative, except as recorded above. PAST HISTORY See nurses notes. PROBLEMS: Sinus Tachycardia. Acidosis. Asthma. --21:06 Lis Carmona, RTapanN. ADDITIONAL SURGERIES: no known surgeries. Kidney stones. SOCIAL HISTORY Former smoker. Occasional alcohol use. History of weekly drug use: marijuana. Recently used drugs today. No recent travel. Is a local resident. FAMILY HISTORY Negative. ADDITIONAL NOTES The nursing notes have been reviewed with agreement regarding the chief complaint, HPI, ROS, PMH and patient medications and allergies. PHYSICAL EXAM Vital Signs: 07/21/2016 21:00 BP: 149/59. HR: 98. RR: 15. O2 saturation: 97%. Pain level now: 7/10. Have been reviewed as normal and appear to be correct. Temperature: 97.9 oral- temperature normal. Appearance: Alert. Oriented X3. No acute distress. Eyes: Pupils equal, round and reactive to light. Eyes normal inspection. Neck: Normal inspection. Neck supple. CVS: Normal heart rate and rhythm. Heart sounds normal. Pulses normal. Respiratory: No respiratory distress. Breath sounds normal. Chest nontender. Abdomen: Soft. Moderate tenderness in the left upper quadrant. Bowel sounds normal. No organomegaly. No mass. Tenderness present. Back: Abnormal inspection. Mild CVA tenderness on the left. Skin: Skin warm and dry. Normal skin color. No rash. Normal skin turgor. Extremities: Extremities exhibit normal ROM. No lower extremity edema. Neuro: Oriented X 3. No motor deficit. No sensory deficit. LABS, X-RAYS, AND EKG Laboratory Tests: UA-Culture if indicated: (CHETAN: 07/21/2016 21:45) ( [facility] 07/21/2016 22:28) IP Test Result Flag Units (Reference) URINE COLOR YELLOW URINE APPEARANCE CLEAR URINE GLUCOSE NEGATIVE (NEGATIVE) URINE BILIRUBIN NEGATIVE (NEGATIVE) URINE KETONE NEGATIVE (NEGATIVE) URINE SPECIFIC GRAVITY 1.025 (1.010-1.030) URINE PH 6.0 (5.0-8.0) URINE PROTEIN TRACE (NEGATIVE) URINE UROBILINOGEN 0.2 EU/dL (0.2-1.0) URINE NITRITE NEGATIVE (NEGATIVE) URINE BLOOD 3+ (NEGATIVE) URINE LEUK ESTERASE NEGATIVE (NEGATIVE) Urine: (CHETAN: 07/21/2016 21:45) ( [facility] 07/21/2016 22:31) Final results Test Result Flag Units (Reference) URINE NEGATIVE CBC w Diff: (CHETAN: 07/21/2016 21:30) ( [facility] 07/21/2016 21:52) Final results Test Result Flag Units (Reference) WHITE BLOOD COUNT 14.3 H K/uL (4.5-11.5) RED BLOOD COUNT 4.52 M/uL (4.00-5.20) HEMOGLOBIN 12.1 gm/dL (12.0-16.0) HEMATOCRIT 36.6 % (36.0-46.0) MEAN CELL VOLUME 81 fL (80-100) MEAN CORPUSCULAR HGB 27 pg (26-34) MEAN CORPUSCULAR HGB CONC 33 g/dL (31-37) RED CELL DISTRIBUTION WIDTH 14.4 % (11.6-14.8) PLATELET COUNT 545 H K/uL (150-400) NEUTROPHIL % 63.5 % (50-75) LYMPH % 28.9 % (25-40) MONO % 4.2 % (3-14) EOSINOPHIL % 2.3 % (0-4) BASOPHIL % 1.1 % (0-2) CMP: (CHETAN: 07/21/2016 21:30) ( MsgRcvd 07/21/2016 22:06) Final results Test Result Flag Units (Reference) GLUCOSE 97 mg/dL (70-110) BUN 10 mg/dL (7-18) CREATININE 0.9 mg/dL (0.6-1.3) Estimated GFR >60 mL/min Estimated GFR- >60 mL/min Note: Persistent reduction over 3 months in eGFR<60 mL/min/1.73 m2 defines CKD. Patients with eGFR values>=60 mL/min/1.73 m2 may also have CKD if evidence ofpersistent proteinuria. Additional information may be foundat www.kidney.org. SODIUM 141 mmol/L (136-145) POTASSIUM 3.9 mmol/L (3.5-5.1) CHLORIDE 104 mmol/L (98-107) CARBON DIOXIDE 26 mmol/L (21-32) CALCIUM 9.2 mg/dL (8.5-10.1) TOTAL PROTEIN 7.6 g/dL (6.4-8.2) ALBUMIN 3.2 L g/dL (3.3-5.0) BILIRUBIN, TOTAL 0.1 mg/dL (0.0-1.0) ALKALINE PHOSPHATASE 93 U/L (46-116) AST (SGOT) 20 U/L (15-37) ALT (SGPT) 31 U/L (12-78) LIPASE 112 U/L (73-393) AMYLASE 55 U/L (25-115) . PROGRESS AND PROCEDURES Course of Care: 21:09 07/21/16. pt has ramos recommending limit ct or imaging, and chronic conditions need tx by pcp, #6 er visits, see report for full details 3175. tx options discussed, whether to do ct or not, pt has had multiple ct's, and has had kidney stones in past, blood work and urine point to possible stone, don't know size or how if multiple, after discussion with pt, pt wants to try and manage her pain at home and if she gets worse to return, pt stated that every time she has been able to pass the stones except once that was about 3 years ago or more. Patient and spouse counseled in person regarding the patient's stable condition, test results and diagnosis. 22:46. Differential Diagnosis: I considered gastritis, peptic ulcer disease, ischemia, gastroesophageal reflux disease, gastroparesis, Crohn's disease, colon cancer, gastroenteritis, pancreatitis, viral syndrome, enterocolitis, urinary tract infection and as a possible cause of vomiting in this patient. This is a partial list of diagnoses considered. (uti, kidney stone). Above considerations are based on history, physical exam, reassessment and laboratory data. Differential diagnosis was discussed with patient. Disposition: Discharged home in good and improved condition (22:51). Condition: good and stable. CLINICAL IMPRESSION Acute left flank pain Intractable vomiting with nausea. No dehydration or volume depletion. Not bilious. INSTRUCTIONS Drink plenty of fluids for the next 24 hours until better. (strain all urine). Warnings: GENERAL WARNINGS: Return or contact your physician immediately if your condition worsens or changes unexpectedly, if not improving as expected, or if other problems arise. SPECIFICALLY, return if you develop pain in the abdomen or pelvis, fever, the inability to keep fluids down, blood in vomitus, blood in diarrhea, fainting or lightheadedness. Prescription Medications: Zofran 4 mg: Take 1 orally every six hours as needed for nausea/vomiting. Dispense ten (10). No refills. Substitution is permissible. Macrobid 100 mg: Take 1 capsule orally every 12 hours for 7 days. No refills. Substitution is permissible. Eldon 5 mg / 325 mg tablets: take 1 to 2 orally every 6 hours as needed for pain. Dispense fifteen (15). No refills. Substitution is permissible. Toradol 10 mg tablets: Take 1 tablet orally every 6 hours as needed. Dispense fifteen (15). No refills. Substitution is permissible. Flomax 0.4 mg: take 1 orally every 24 hours. Dispense fifteen (15). No refills. Substitution is permissible. Follow-up: Follow up with your doctor in two days even if well. Call for an appointment. Summary of care provided to patient. Understanding of the discharge instructions verbalized by patient. (Electronically signed by Ana Torres A.R.N.P. 07/22/2016 15:30)
--- NOTE | 2016-07-21 22:51 | ED ORDER SUMMARY ---
..... Patient: BERHANE WOLFE OrderSheet [facility] VisitID: [id number] [address] [place] [address] 31y, F Registration Date/Time: 07/21/2016 ORDER SHEET Weight: 89.8 kg (stated) Allergies: Sulfa Antibiotics GENERAL ORDERS: CBC w Diff Urgent (21:14 07/21/2016 HBivens A.R.N.P.) (Ack 21:16 SRedmond) (21:41 EHassan R.N.) CMP Urgent (21:14 07/21/2016 HBivens A.R.N.P.) (Ack 21:16 SRedmond) (21:41 EHassan R.N.) UA-Culture if indicated Urgent (21:07/21/2016 HBivens A.R.N.P.) (Ack 21:16 SRedmond) (21:48 EHassan R.N.) Urine Urgent (21:14 07/21/2016 HBivens A.R.N.P.) (Ack 21:16 SRedmond) (21:48 EHassan R.N.) Urine Drug Screen Urgent (21:14 07/21/2016 HBivens A.R.N.P.) (Ack 21:16 SRedmond) (21:41 EHassan R.N.) Amylase Urgent (21:14 07/21/2016 HBivens A.R.N.P.) (Ack 21:16 SRedmond) (21:41 EHassan R.N.) Lipase Urgent (21:14 07/21/2016 HBivens A.R.N.P.) (Ack 21:16 SRedmond) (21:41 EHassan R.N.) MEDICATION ORDERS: Hydrocodone-APAP PO 5/325 mg (NOW, HIGH ALERT MEDICATION) (22:51 07/21/2016 HBivens A.R.N.P.) (23:07 EHassan R.N.) IV FLUIDS: IV NS : initial bolus 1000 mL (1000 mL/hr), then none - (NOW) (21:13 07/21/2016 HBivens A.R.N.P.) (21:42 EHassan R.N.) Toradol IV 30 mg (NOW) (21:13 07/21/2016 HBivens A.R.N.P.) (21:42 EHassan R.N.) Zofran IV 4 mg (NOW) (21:13 07/21/2016 HBivens A.R.N.P.) (21:42 EHassan R.N.) IV Saline Lock (21:14 07/21/2016 HBivens A.R.N.P.) (21:41 EHassan R.N.) ORDER SHEET NOTES: [Electronically signed by Lis Carmona R.N. (23:11 07/21/2016)] [Electronically signed by Ana TorresR.N.P. (15:30 07/22/2016)] [Electronically locked/signed by Lis Carmona R.N. (23:11 07/21/2016)]
--- NOTE | 2016-07-21 22:51 | ED ORDER SUMMARY ---
..... Patient: BERHANE WOLFE OrderSheet [facility] VisitID: [id number] [address] [place] [address] 31y, F Registration Date/Time: 07/21/2016 ORDER SHEET Weight: 89.8 kg (stated) Allergies: Sulfa Antibiotics GENERAL ORDERS: CBC w Diff Urgent (21:14 07/21/2016 HBivens A.R.N.P.) (Ack 21:16 SRedmond) (21:41 EHassan R.N.) CMP Urgent (21:14 07/21/2016 HBivens A.R.N.P.) (Ack 21:16 SRedmond) (21:41 EHassan R.N.) UA-Culture if indicated Urgent (21:07/21/2016 HBivens A.R.N.P.) (Ack 21:16 SRedmond) (21:48 EHassan R.N.) Urine Urgent (21:14 07/21/2016 HBivens A.R.N.P.) (Ack 21:16 SRedmond) (21:48 EHassan R.N.) Urine Drug Screen Urgent (21:14 07/21/2016 HBivens A.R.N.P.) (Ack 21:16 SRedmond) (21:41 EHassan R.N.) Amylase Urgent (21:14 07/21/2016 HBivens A.R.N.P.) (Ack 21:16 SRedmond) (21:41 EHassan R.N.) Lipase Urgent (21:14 07/21/2016 HBivens A.R.N.P.) (Ack 21:16 SRedmond) (21:41 EHassan R.N.) MEDICATION ORDERS: Hydrocodone-APAP PO 5/325 mg (NOW, HIGH ALERT MEDICATION) (22:51 07/21/2016 HBivens A.R.N.P.) (23:07 EHassan R.N.) IV FLUIDS: IV NS : initial bolus 1000 mL (1000 mL/hr), then none - (NOW) (21:13 07/21/2016 HBivens A.R.N.P.) (21:42 EHassan R.N.) Toradol IV 30 mg (NOW) (21:13 07/21/2016 HBivens A.R.N.P.) (21:42 EHassan R.N.) Zofran IV 4 mg (NOW) (21:13 07/21/2016 HBivens A.R.N.P.) (21:42 EHassan R.N.) IV Saline Lock (21:14 07/21/2016 HBivens A.R.N.P.) (21:41 EHassan R.N.) ORDER SHEET NOTES: [Electronically signed by Lis Carmona R.N. (23:11 07/21/2016)] [Electronically signed by Ana TorresR.N.P. (15:30 07/22/2016)] [Electronically locked/signed by Lis Carmona R.N. (23:11 07/21/2016)]
--- NOTE | 2016-07-21 22:51 | ED NURSING NOTES ---
Clinical Report - Nurses [facility] [address] [place] [address] 07/21/2016 20:51 Patient: BERHANE WOLFE TRIAGE Triage time 2100 PM. Acuity: LEVEL 3. Chief Complaint: ABDOMINAL PAIN, NAUSEA and VOMITING. Alert. No acute distress. SEPSIS SCREEN: Sepsis Screen. Negative (no infection suspected/documented). MILKA COMA SCORE: Milka Coma Scale: 15- eyes open spontaneously (4); best verbal response- oriented x 4 (5); best motor response- obeys commands (6). --21:10 Lis Carmona R.N. 21:03 07/21/16. BP: 151/129. HR: 100. RR: 18. O2 saturation: 99%. Temp: 97.9 F. Pain level now: 02/07. --21:10 Lis Carmona R.N. Triage time 21 00 late entry - PM. Acuity: LEVEL 3. Chief Complaint: ABDOMINAL PAIN, NAUSEA and VOMITING. --21:15 Lis Carmona R.N. Weight: 89.8 kg stated. Height/Length: 59 inches Per Patient. BMI: 40. --21:02 Lis Carmona R.N. Medications Albuterol inhaler prn. --21:06 Lis Carmona R.N. Allergies Sulfa Antibiotics. --21:06 Lis Carmona R.N. Medication/allergy information source: the patient. --21:10 Lis Carmona R.N. Medication/allergy information source: the patient. --21:15 Lis Carmona R.N. History <<STRICKEN ENTRY-- Arrived by private vehicle. Historian: patient. Primary physician (Dr. Hakan Hernández). ( Pt states sudden onset of vomiting and abdominal pain and right flank pain, started approximately at 4 pm with right flank pain radiating to right lower abdomen. Pt does admit to having kidney stones in the past. Here for evaluation). This started today. Onset. (5 hours). She has had nausea, vomiting, diarrhea and abdominal pain. No constipation or fever. Last oral intake by patient was dinner today (2 hours). 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 PAST MEDICAL HX: Immunizations: up-to-date. Last normal menstrual period was 3 weeks ago. Sexual history - sexually active. No contraception. SOCIAL HX: Former smoker. History of drug use: marijuana. Recently used drugs today. No alcohol use. No recent travel. No known contact with a sick individual. ABUSE ASSESSMENT: No report of abuse. SELF HARM ASSESSMENT: A self harm assessment was performed. The patient answered "no" to the question "Do you have thoughts of harming or killing yourself?" and "Have you recently had thoughts about harming or killing others?". FALL RISK ASSESSMENT: Fall risk assessment completed. No fall risk identified. NUTRITIONAL RISK ASSESSMENT: The nutritional risk assessment revealed no deficiencies. FUNCTIONAL ASSESSMENT: Functional assessment: no impairments noted. LEARNING NEEDS ASSESSMENT: The learning needs assessment revealed no barriers. SKIN INTEGRITY ASSESSMENT: Skin integrity risk assessment completed. No skin integrity risk identified. --21:10 Lis Carmona R.N. --END STRIKE>> Correction --21:12 Lis Carmona R.N. Arrived by private vehicle. Historian: patient. Accompanied by family. ( Pt states sudden onset of vomiting and abdominal pain about 4 pm vomited about 6 times today, left flank pain which radiates to left lower abdomen. Pt does admit of having kidney stones in the past). This started today. She has had nausea, vomiting, diarrhea and abdominal pain. No fever. Last oral intake by patient was (2 hours). 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 PAST MEDICAL HX: Immunizations: up-to-date. Last normal menstrual period was 3 weeks ago- weeks. SOCIAL HX: Former smoker. History of weekly drug use: marijuana. Recently used drugs today. No alcohol use. No recent travel. No infectious disease exposure. No known contact with a sick individual. ABUSE ASSESSMENT: No report of abuse. SELF HARM ASSESSMENT: A self harm assessment was performed. The patient answered "no" to the question "Do you have thoughts of harming or killing yourself?" and "Have you recently had thoughts about harming or killing others?". FALL RISK ASSESSMENT: Fall risk assessment completed. No fall risk identified. NUTRITIONAL RISK ASSESSMENT: The nutritional risk assessment revealed no deficiencies. FUNCTIONAL ASSESSMENT: Functional assessment: no impairments noted. LEARNING NEEDS ASSESSMENT: The learning needs assessment revealed no barriers. SKIN INTEGRITY ASSESSMENT: Skin integrity risk assessment completed. No skin integrity risk identified. --21:15 Lis Carmona R.N. PROBLEMS: Sinus Tachycardia. Acidosis. Asthma. --21:06 Lis Carmona R.N. Nephrolithiasis. --21:09 Lis Carmona R.N. ADDITIONAL SURGERIES: . --21:08 Lis Carmona R.N. Tubal Ligation. --21:08 Lis Carmoan R.N. Interventions ID band on patient. --21:10 iLs Carmona R.N. ID band on patient. --21:15 Lis Carmona R.N. PHYSICAL ASSESSMENT Ambulatory to room. GENERAL / NEURO / PSYCH: Alert. Oriented X 4. Appears in pain. HEENT: Mucous membranes are pink. RESPIRATORY: Respirations not labored. Breath sounds within normal limits. CVS: Capillary refill less than 2 seconds. GI / : The patient has had nausea. Abdomen soft. Abdominal tenderness in the left side of the abdomen and lower abdomen. Guarding and rebound tenderness present. Guarding present. SKIN: Skin is warm and dry. --21:16 Lis Carmona R.N. NURSING PROGRESS NOTES The initial plan of care for this patient has been created This plan of care was discussed with the patient. Patient gowned. Warming measures: blanket applied. Reassurance given. Two patient identifiers checked. Call light placed in reach. Side rails up x 1. Bed placed in lowest position. Brakes of bed on. --21:16 Lis Carmona R.N. 21:41 07/21/2016 Site #1 started via IV in the right antecubital space; one attempt. Blood drawn: rainbow set. Labeled in the presence of the patient and sent to the lab. Saline lock flushed. --21:41 Lis Carmona R.N. 21:42 07/21/2016 Started bag #1 1000 mL IV Fluids IV NS (Saline); at 1000 mL/hr over 1 hour(s) via site #1 via dial-a-flow. Allergies verified and confirmed 5 rights. IV patency established. IV site checked: no pain, redness, or swelling. IV flushed thoroughly pre- and post-medication administration. --21:42 Lis Carmona R.N. 21:42 07/21/2016 Toradol IVP 30 mg given over 1 minute(s) via site #1. Allergies verified and confirmed 5 rights. IV patency established. IV site checked: no pain, redness, or swelling. IV flushed thoroughly pre- and post-medication administration. IVP given by RN. --21:42 Lis Carmona R.N. 21:07/21/2016 Zofran (Ondansetron HCl) IVP 4 mg given over 2 minute(s) via site #1. Allergies verified and confirmed 5 rights. IV patency established. IV site checked: no pain, redness, or swelling. IV flushed thoroughly pre- and post-medication administration. IVP given by RN. --:42 Lis Carmona R.N. Reassurance given. Patient ID band checked for patient name, birthdate and medical record number: patient confirmed. Clean catch urine collected with return of yellow-colored clear urine; sample sent to lab for urinalysis. Specimen labeled in the presence of the patient. Reassessment after fluids administered. She is calm. Overall patient status is improved- she states feels better. ( Pt vomited x2 since arrival, zofran given, IV initiated, toradol given for pain, emotional support provided.). GI / : The patient reports nausea. The patient reports abdominal pain. SKIN: Skin color within normal limits. --21:47 Lis Carmona R.N. 21:00 07/21/16. BP: 149/59. HR: 98. RR: 15. O2 saturation: 97% on room air. Pain level now: 11/07. --21:47 Lis Carmona R.N. 22:07 07/21/2016 Zofran IVP Response: no adverse reaction. --23:07 Lis Carmona R.N. 23:06 07/21/2016 Hydrocodone-APAP (Hydrocodone-Acetaminophen) PO 5/325 mg Tablets 1 tab given. Allergies verified, confirmed 5 rights and sedative warning given to the patient and patient's family. --23:07 Lis Carmona R.N. 23:07 07/21/2016 Toradol IVP Response: no adverse reaction. --23:07 Lis Carmona R.N. 23:07/21/2016 IV Fluids IV NS Discontinued: bag #1 completed upon discharge. Total amount infused: 1000 mL. IV patency established. IV site checked: no pain, redness, or swelling. IV flushed thoroughly. --23:07 Lis Carmona R.N. late entry - 22:00 PM. Reassurance given. Reassessment after fluids administered. She is calm. Overall patient status is the same- she states feels better. --23: Lis Carmona R.N. 22:07/21/16. BP: 110/59. HR: 87. RR: 14. O2 saturation: 100% on room air. Pain level now: 11/07. --23: Lis Carmona R.N. DISPOSITION / DISCHARGE 23:07/21/2016 Site #1 removed upon discharge. Manual pressure and bandaid applied. --23:10 Lis Carmona R.N. Departure time: 2311 PM. Condition at departure: improved and stable. The goals identified in the patient's plan of care were met. No learning barriers present. Discharge instructions provided and reviewed with the patient. Reviewed medication(s) side effects, precautions, dosing and course information. Prescription(s) given to the patient. Patient verbalized understanding. Written instructions provided in Irish. The patient was discharged by the nurse practitioner. She was discharged home and accompanied by spouse. She left the Emergency Department ambulatory and via private vehicle. Spouse driving. FALL RISK ASSESSMENT: Fall risk assessment completed. No fall risk identified. --23:11 Lis Carmona R.N. 23:07/21/16. BP: 98/52. HR: 87. RR: 14. O2 saturation: 100%. Temp: 98.7 F (oral). Pain level now: 11/07. --23:11 Lis Carmona R.N. Locked/Released at 07/21/2016 23:11 by Lis Carmona R.N.
--- NOTE | 2016-07-21 22:51 | ED CLINICAL REPORT ---
Clinical Report - Physicians/Mid Levels [facility] [address] [place] [address] 07/21/2016 20:51 Patient: BERHANE WOLFE Time Seen: 21:05; initial patient contact, initial documentation, patient care assumed. Arrived- By private vehicle. Historian- patient. HISTORY OF PRESENT ILLNESS Chief Complaint: FLANK PAIN. At its maximum, severity described as severe. When seen in the E.D., severity described as severe. Modifying factors- worsened by deep breaths. Not relieved by anything. It is described as "pain" and it is described as located in the left upper quadrant and left abdomen and the left flank. This started just prior to arrival about 5 hours [employer]. The patient has had nausea. No loss of appetite or diarrhea. She has had vomiting. The vomiting has occurred numerous times. No bilious emesis, feculent emesis, blood-tinged emesis, coffee-grounds emesis or frankly bloody emesis. No unusually dark emesis. No recent travel. Similar symptoms previously: Frequently, worse. ( pain feels similar to her kidney stone pain). Recent medical care: Not recently seen/assessed. REVIEW OF SYSTEMS No constipation, black stools, hematemesis, difficulty with urination or pain with urination. No urinary frequency, bloody stools, fever, chest pain or difficulty breathing. All systems otherwise negative, except as recorded above. PAST HISTORY See nurses notes. PROBLEMS: Sinus Tachycardia. Acidosis. Asthma. --21:06 Lis Carmona, RTapanN. ADDITIONAL SURGERIES: no known surgeries. Kidney stones. SOCIAL HISTORY Former smoker. Occasional alcohol use. History of weekly drug use: marijuana. Recently used drugs today. No recent travel. Is a local resident. FAMILY HISTORY Negative. ADDITIONAL NOTES The nursing notes have been reviewed with agreement regarding the chief complaint, HPI, ROS, PMH and patient medications and allergies. PHYSICAL EXAM Vital Signs: 07/21/2016 21:00 BP: 149/59. HR: 98. RR: 15. O2 saturation: 97%. Pain level now: 7/10. Have been reviewed as normal and appear to be correct. Temperature: 97.9 oral- temperature normal. Appearance: Alert. Oriented X3. No acute distress. Eyes: Pupils equal, round and reactive to light. Eyes normal inspection. Neck: Normal inspection. Neck supple. CVS: Normal heart rate and rhythm. Heart sounds normal. Pulses normal. Respiratory: No respiratory distress. Breath sounds normal. Chest nontender. Abdomen: Soft. Moderate tenderness in the left upper quadrant. Bowel sounds normal. No organomegaly. No mass. Tenderness present. Back: Abnormal inspection. Mild CVA tenderness on the left. Skin: Skin warm and dry. Normal skin color. No rash. Normal skin turgor. Extremities: Extremities exhibit normal ROM. No lower extremity edema. Neuro: Oriented X 3. No motor deficit. No sensory deficit. LABS, X-RAYS, AND EKG Laboratory Tests: UA-Culture if indicated: (CHETAN: 07/21/2016 21:45) ( [facility] 07/21/2016 22:28) IP Test Result Flag Units (Reference) URINE COLOR YELLOW URINE APPEARANCE CLEAR URINE GLUCOSE NEGATIVE (NEGATIVE) URINE BILIRUBIN NEGATIVE (NEGATIVE) URINE KETONE NEGATIVE (NEGATIVE) URINE SPECIFIC GRAVITY 1.025 (1.010-1.030) URINE PH 6.0 (5.0-8.0) URINE PROTEIN TRACE (NEGATIVE) URINE UROBILINOGEN 0.2 EU/dL (0.2-1.0) URINE NITRITE NEGATIVE (NEGATIVE) URINE BLOOD 3+ (NEGATIVE) URINE LEUK ESTERASE NEGATIVE (NEGATIVE) Urine: (CHETAN: 07/21/2016 21:45) ( [facility] 07/21/2016 22:31) Final results Test Result Flag Units (Reference) URINE NEGATIVE CBC w Diff: (CHETAN: 07/21/2016 21:30) ( [facility] 07/21/2016 21:52) Final results Test Result Flag Units (Reference) WHITE BLOOD COUNT 14.3 H K/uL (4.5-11.5) RED BLOOD COUNT 4.52 M/uL (4.00-5.20) HEMOGLOBIN 12.1 gm/dL (12.0-16.0) HEMATOCRIT 36.6 % (36.0-46.0) MEAN CELL VOLUME 81 fL (80-100) MEAN CORPUSCULAR HGB 27 pg (26-34) MEAN CORPUSCULAR HGB CONC 33 g/dL (31-37) RED CELL DISTRIBUTION WIDTH 14.4 % (11.6-14.8) PLATELET COUNT 545 H K/uL (150-400) NEUTROPHIL % 63.5 % (50-75) LYMPH % 28.9 % (25-40) MONO % 4.2 % (3-14) EOSINOPHIL % 2.3 % (0-4) BASOPHIL % 1.1 % (0-2) CMP: (CHETAN: 07/21/2016 21:30) ( MsgRcvd 07/21/2016 22:06) Final results Test Result Flag Units (Reference) GLUCOSE 97 mg/dL (70-110) BUN 10 mg/dL (7-18) CREATININE 0.9 mg/dL (0.6-1.3) Estimated GFR >60 mL/min Estimated GFR- >60 mL/min Note: Persistent reduction over 3 months in eGFR<60 mL/min/1.73 m2 defines CKD. Patients with eGFR values>=60 mL/min/1.73 m2 may also have CKD if evidence ofpersistent proteinuria. Additional information may be foundat www.[email or web address].org. SODIUM 141 mmol/L (136-145) POTASSIUM 3.9 mmol/L (3.5-5.1) CHLORIDE 104 mmol/L (98-107) CARBON DIOXIDE 26 mmol/L (21-32) CALCIUM 9.2 mg/dL (8.5-10.1) TOTAL PROTEIN 7.6 g/dL (6.4-8.2) ALBUMIN 3.2 L g/dL (3.3-5.0) BILIRUBIN, TOTAL 0.1 mg/dL (0.0-1.0) ALKALINE PHOSPHATASE 93 U/L (46-116) AST (SGOT) 20 U/L (15-37) ALT (SGPT) 31 U/L (12-78) LIPASE 112 U/L (73-393) AMYLASE 55 U/L (25-115) . PROGRESS AND PROCEDURES Course of Care: 21:09 07/21/16. pt has ramos recommending limit ct or imaging, and chronic conditions need tx by pcp, #6 er visits, see report for full details 2001. tx options discussed, whether to do ct or not, pt has had multiple ct's, and has had kidney stones in past, blood work and urine point to possible stone, don't know size or how if multiple, after discussion with pt, pt wants to try and manage her pain at home and if she gets worse to return, pt stated that every time she has been able to pass the stones except once that was about 3 years ago or more. Patient and spouse counseled in person regarding the patient's stable condition, test results and diagnosis. 22:46. Differential Diagnosis: I considered gastritis, peptic ulcer disease, ischemia, gastroesophageal reflux disease, gastroparesis, Crohn's disease, colon cancer, gastroenteritis, pancreatitis, viral syndrome, enterocolitis, urinary tract infection and as a possible cause of vomiting in this patient. This is a partial list of diagnoses considered. (uti, kidney stone). Above considerations are based on history, physical exam, reassessment and laboratory data. Differential diagnosis was discussed with patient. Disposition: Discharged home in good and improved condition (22:51). Condition: good and stable. CLINICAL IMPRESSION Acute left flank pain Intractable vomiting with nausea. No dehydration or volume depletion. Not bilious. INSTRUCTIONS Drink plenty of fluids for the next 24 hours until better. (strain all urine). Warnings: GENERAL WARNINGS: Return or contact your physician immediately if your condition worsens or changes unexpectedly, if not improving as expected, or if other problems arise. SPECIFICALLY, return if you develop pain in the abdomen or pelvis, fever, the inability to keep fluids down, blood in vomitus, blood in diarrhea, fainting or lightheadedness. Prescription Medications: Zofran 4 mg: Take 1 orally every six hours as needed for nausea/vomiting. Dispense ten (10). No refills. Substitution is permissible. Macrobid 100 mg: Take 1 capsule orally every 12 hours for 7 days. No refills. Substitution is permissible. Ely 5 mg / 325 mg tablets: take 1 to 2 orally every 6 hours as needed for pain. Dispense fifteen (15). No refills. Substitution is permissible. Toradol 10 mg tablets: Take 1 tablet orally every 6 hours as needed. Dispense fifteen (15). No refills. Substitution is permissible. Flomax 0.4 mg: take 1 orally every 24 hours. Dispense fifteen (15). No refills. Substitution is permissible. Follow-up: Follow up with your doctor in two days even if well. Call for an appointment. Summary of care provided to patient. Understanding of the discharge instructions verbalized by patient. (Electronically signed by Ana Torres A.R.N.P. 07/22/2016 15:30)
--- NOTE | 2016-07-22 15:30 | ED MAR SUMMARY ---
..... Medication Administration Record [facility] [address] [place] [address] Patient: BERHANE WOLFE Visit ID: [id number] 31y, F Weight: 89.8 kg Height/Length: 59 in BMI: 40 ALLERGIES: Sulfa Antibiotics Start 21:42 07/21/2016 Lis Carmona R.N., Stop 23:07 07/21/2016 Lis Carmona R.N. Medication Administered: IV NS (SALINE), Dose: IV Fluids over 1 hour(s), Rate: 1000 mL/hr, Dispensed: 1000 mL bag, Site: #1 right AC. Medication Ordered: IV NS : initial bolus 1000 mL (1000 mL/hr), then none - (NOW). Given :07/21/2016 Lis Carmona R.N. Medication Administered: TORADOL [IVP], Dose: 30 mg IVP over 1 minute(s), Site: #1 right AC. Medication Ordered: Toradol IV 30 mg (NOW). Given :07/21/2016 Lis Carmona R.N. Medication Administered: ZOFRAN [IVP] (ONDANSETRON HCL), Dose: 4 mg IVP over 2 minute(s), Site: #1 right AC. Medication Ordered: Zofran IV 4 mg (NOW). Given 23:06 07/21/2016 Lis Carmona R.N. Medication Administered: HYDROCODONE-APAP [PO] (HYDROCODONE-ACETAMINOPHEN), Dose: 1 tab 5/325 mg Tablets PO. Medication Ordered: Hydrocodone-APAP PO 5/325 mg (NOW, HIGH ALERT MEDICATION).
--- NOTE | 2016-07-22 15:30 | ED DISCHARGE INSTRUCTIONS ---
Patient: BERHANE WOLFE General Instructions [facility] VisitID: [id number] [place] [address] 31y, F Registration Date/Time: 07/21/2016 Acute left flank pain Intractable vomiting with nausea. No dehydration or volume depletion. Not bilious. INSTRUCTIONS Drink plenty of fluids for the next 24 hours until better. (strain all urine). Warnings: GENERAL WARNINGS: Return or contact your physician immediately if your condition worsens or changes unexpectedly, if not improving as expected, or if other problems arise. SPECIFICALLY, return if you develop pain in the abdomen or pelvis, fever, the inability to keep fluids down, blood in vomitus, blood in diarrhea, fainting or lightheadedness. Prescription Medications: Zofran 4 mg: Take 1 orally every six hours as needed for nausea/vomiting. Dispense ten (10). No refills. Substitution is permissible. Macrobid 100 mg: Take 1 capsule orally every 12 hours for 7 days. No refills. Substitution is permissible. [place] 5 mg / 325 mg tablets: take 1 to 2 orally every 6 hours as needed for pain. Dispense fifteen (15). No refills. Substitution is permissible. Toradol 10 mg tablets: Take 1 tablet orally every 6 hours as needed. Dispense fifteen (15). No refills. Substitution is permissible. Flomax 0.4 mg: take 1 orally every 24 hours. Dispense fifteen (15). No refills. Substitution is permissible. Follow-up: Follow up with your doctor in two days even if well. Call for an appointment. Summary of care provided to patient. Understanding of the discharge instructions verbalized by patient. ADDITIONAL INFORMATION Vomiting [6Yr-Adult] Vomiting is a common symptom that may be due to different causes. These include gastroenteritis ("stomach flu"), food poisoning and gastritis. There are other more serious causes of vomiting which may be hard to diagnose early in the illness. Therefore, it is important to watch for the warning signs listed below. The main danger from repeated vomiting is dehydration. This is due to excess loss of water and minerals from the body. When this occurs, body fluids must be replaced. Home Care: If symptoms are severe, rest at home for the next 24 hours. You may use acetaminophen (Tylenol) or ibuprofen (Motrin, Advil) to control fever, unless another medicine was prescribed. [NOTE : If you have chronic liver or kidney disease or ever had a stomach ulcer or GI bleeding, talk with your doctor before using these medicines.] (Aspirin should never be used in anyone under 18 years of age who is ill with a fever. It may cause severe liver damage.) Avoid tobacco and alcohol use, which may worsen your symptoms. If medicines for vomiting were prescribed, take as directed. Once vomiting stops, then follow these guidelines: During The First 12-24 Hours follow the diet below: FRUIT JUICES: Apple, grape juice, clear fruit drinks, and electrolyte replacement drinks. BEVERAGES: Soft drinks without caffeine; mineral water (plain or flavored), decaffeinated tea and coffee. SOUPS: Clear broth, consomm and bouillon DESSERTS: Plain gelatin, popsicles and fruit juice bars. As you feel better, you may add 6-8 ounces of yogurt per day. During The Next 24 Hours you may add the following to the above: Hot cereal, plain toast, bread, rolls, crackers Plain noodles, rice, mashed potatoes, chicken noodle or rice soup Unsweetened canned fruit (avoid pineapple), bananas Limit caffeine and chocolate. No spices or seasonings except salt. During The Next 24 Hours Gradually resume a normal diet, as you feel better and your symptoms lessen. Follow Up with your doctor as advised if you are not improving over the next 2-3 days. Get Prompt Medical Attention if any of the following occur: Constant right-sided lower abdominal pain or increasing general abdominal pain Continued vomiting (unable to keep liquids down) for 24 hours Frequent diarrhea (more than 5 times a day); blood (red or black color) or mucus in diarrhea Reduced urine output or extreme thirst Weakness, dizziness or fainting Unusually drowsy or confused Fever of 100.4F (38C) oral or higher, not better with fever medication Yellow color of the eyes or skin Flank Pain[Uncertain Cause] The flank is the area between the upper abdomen and the back. Pain here is often related to the kidneyan infection or a kidney stone. Other causes of flank pain include spinal arthritis, pinched nerve from a disk injury, back muscle strain or spasm. The cause of your flank pain is not certain and further tests may be needed. Home Care: You may use acetaminophen (Tylenol) or ibuprofen (Motrin, Advil) to control pain, unless another medicine was prescribed. [NOTE: If you have chronic liver or kidney disease or ever had a stomach ulcer or GI bleeding, talk with your doctor before using these medicines.] If the cause of your pain is coming from the muscles, ice or heat may give relief. During the first two days after injury, apply an ICE PACK to the painful area for 20 minutes every 2-4 hours. This will reduce swelling and pain. HEAT (hot shower, hot bath or heating pad) works well for muscle spasm. You can start with ice, then switch to heat after two days. Some patients feel best alternating ice and heat treatments. Use the one method that feels the best to you. Follow Up with your doctor or as advised by our staff for further evaluation if your symptoms are not improving over the next few days. Return Promptly or contact your doctor if any of the following occur: Repeated vomiting Fever of 100.4F (38C) or higher, or as directed by your healthcare provider Increasing flank pain Pain that spreads to the front of the abdomen Dizziness, weakness or fainting Blood in your urine Burning with urination or frequent urination Increasing pain in the leg Numbness or weakness in the leg Ondansetron Oral disintegrating tablet What is this medicine? ONDANSETRON (on MUNA se cristhian) is used to treat nausea and vomiting caused by chemotherapy. It is also used to prevent or treat nausea and vomiting after surgery. How should I use this medicine? These tablets are made to dissolve in the mouth. Do not try to push the tablet through the foil backing. With dry hands, peel away the foil backing and gently remove the tablet. Place the tablet in the mouth and allow it to dissolve, then swallow. While you may take these tablets with water, it is not necessary to do so. Talk to your back seam stitcher regarding the use of this medicine in children. Special care may be needed. What side effects may I notice from receiving this medicine? Side effects that you should report to your doctor or health healthcare insurance sales agent as soon as possible: allergic reactions like skin rash, itching or hives, swelling of the face, lips, or tongue breathing problems dizziness fast or irregular heartbeat feeling faint or lightheaded, falls fever and chills swelling of the hands and feet tightness in the chest Side effects that usually do not require medical attention (report to your doctor or health healthcare insurance sales agent if they continue or are bothersome): constipation or diarrhea headache What may interact with this medicine? Do not take this medicine with any of the following medications: -apomorphine -cisapride -dofetilide -dronedarone -pimozide -thioridazine -ziprasidone This medicine may also interact with the following medications: -carbamazepine -phenytoin -rifampicin -tramadol -other medicines that prolong the QT interval (cause an abnormal heart rhythm) What if I miss a dose? If you miss a dose, take it as soon as you can. If it is almost time for your next dose, take only that dose. Do not take double or extra doses. Where should I keep my medicine? Keep out of the reach of children. Store between 2 and 30 degrees C (36 and 86 degrees F). Throw away any unused medicine after the expiration date. What should I tell my health care provider before I take this medicine? They need to know if you have any of these conditions: heart disease history of irregular heartbeat liver disease low levels of magnesium or potassium in the blood an unusual or allergic reaction to ondansetron, granisetron, other medicines, foods, dyes, or preservatives or trying to get breast-feeding What should I watch for while using this medicine? Check with your doctor or health healthcare insurance sales agent as soon as you can if you have any sign of an allergic reaction. Nitrofurantoin, Nitrofurantoin, Macrocrystalline Oral capsule What is this medicine? NITROFURANTOIN (reji gibbs) is an antibiotic. It is used to treat urinary tract infections. How should I use this medicine? Take this medicine by mouth with a glass of water. Follow the directions on the prescription label. Take this medicine with food or milk. Take your doses at regular intervals. Do not take your medicine more often than directed. Do not stop taking except on your doctor's advice. Talk to your back seam stitcher regarding the use of this medicine in children. While this drug may be prescribed for selected conditions, precautions do apply. What side effects may I notice from receiving this medicine? Side effects that you should report to your doctor or health healthcare insurance sales agent as soon as possible: allergic reactions like skin rash or hives, swelling of the face, lips, or tongue chest pain cough difficulty breathing dizziness, drowsiness fever or infection joint aches or pains pale or blue-tinted skin redness, blistering, peeling or loosening of the skin, including inside the mouth tingling, burning, pain, or numbness in hands or feet unusual bleeding or bruising unusually weak or tired yellowing of eyes or skin Side effects that usually do not require medical attention (report to your doctor or health healthcare insurance sales agent if they continue or are bothersome): dark urine diarrhea headache loss of appetite nausea or vomiting temporary hair loss What may interact with this medicine? antacids containing magnesium trisilicate probenecid quinolone antibiotics like ciprofloxacin, lomefloxacin, norfloxacin and ofloxacin sulfinpyrazone What if I miss a dose? If you miss a dose, take it as soon as you can. If it is almost time for your next dose, take only that dose. Do not take double or extra doses. Where should I keep my medicine? Keep out of the reach of children. Store at room temperature between 15 and 30 degrees C (59 and 86 degrees F). Protect from light. Throw away any unused medicine after the expiration date. What should I tell my health care provider before I take this medicine? They need to know if you have any of these conditions: anemia diabetes [id number] dehydrogenase deficiency kidney disease liver disease lung disease other chronic illness an unusual or allergic reaction to nitrofurantoin, other antibiotics, other medicines, foods, dyes or preservatives or trying to get breast-feeding What should I watch for while using this medicine? Tell your doctor or health healthcare insurance sales agent if your symptoms do not improve or if you get new symptoms. Drink several glasses of water a day. If you are taking this medicine for a long time, visit your doctor for regular checks on your progress. If you are diabetic, you may get a false positive result for sugar in your urine with certain brands of urine tests. Check with your doctor. Hydrocodone Bitartrate, Acetaminophen Oral tablet What is this medicine? ACETAMINOPHEN; HYDROCODONE (a set a ANGIE jocelin fen; som droe KOE done) is a pain reliever. It is used to treat mild to moderate pain. How should I use this medicine? Take this medicine by mouth. Swallow it with a full glass of water. Follow the directions on the prescription label. If the medicine upsets your stomach, take the medicine with food or milk. Do not take more than you are told to take. Talk to your back seam stitcher regarding the use of this medicine in children. This medicine is not approved for use in children. What side effects may I notice from receiving this medicine? Side effects that you should report to your doctor or health healthcare insurance sales agent as soon as possible: allergic reactions like skin rash, itching or hives, swelling of the face, lips, or tongue breathing problems confusion feeling faint or lightheaded, falls stomach pain yellowing of the eyes or skin Side effects that usually do not require medical attention (report to your doctor or health healthcare insurance sales agent if they continue or are bothersome): nausea, vomiting stomach upset What may interact with this medicine? alcohol antihistamines isoniazid medicines for depression, anxiety, or psychotic disturbances medicines for sleep muscle relaxants naltrexone narcotic medicines (opiates) for pain phenobarbital ritonavir tramadol What if I miss a dose? If you miss a dose, take it as soon as you can. If it is almost time for your next dose, take only that dose. Do not take double or extra doses. Where should I keep my medicine? Keep out of the reach of children. This medicine can be abused. Keep your medicine in a safe place to protect it from theft. Do not share this medicine with anyone. Selling or giving away this medicine is dangerous and against the law. Store at room temperature between 15 and 30 degrees C (59 and 86 degrees F). Protect from light. Keep container tightly closed. Throw away any unused medicine after the expiration date. Discard unused medicine and used packaging carefully. Pets and children can be harmed if they find used or lost packages. What should I tell my health care provider before I take this medicine? They need to know if you have any of these conditions: brain tumor Crohn's disease, inflammatory bowel disease, or ulcerative colitis drink more than 3 alcohol-containing drinks per day drug abuse or addiction head injury heart or circulation problems kidney disease or problems going to the bathroom liver disease lung disease, asthma, or breathing problems an unusual or allergic reaction to acetaminophen, hydrocodone, other opioid analgesics, other medicines, foods, dyes, or preservatives or trying to get breast-feeding What should I watch for while using this medicine? Tell your doctor or health healthcare insurance sales agent if your pain does not go away, if it gets worse, or if you have new or a different type of pain. You may develop tolerance to the medicine. Tolerance means that you will need a higher dose of the medicine for pain relief. Tolerance is normal and is expected if you take the medicine for a long time. Do not suddenly stop taking your medicine because you may develop a severe reaction. Your body becomes used to the medicine. This does NOT mean you are addicted. Addiction is a behavior related to getting and using a drug for a non-medical reason. If you have pain, you have a medical reason to take pain medicine. Your doctor will tell you how much medicine to take. If your doctor wants you to stop the medicine, the dose will be slowly lowered over time to avoid any side effects. You may get drowsy or dizzy when you first start taking the medicine or change doses. Do not drive, use machinery, or do anything that may be dangerous until you know how the medicine affects you. Stand or sit up slowly. There are different types of narcotic medicines (opiates) for pain. If you take more than one type at the same time, you may have more side effects. Give your health care provider a list of all medicines you use. Your doctor will tell you how much medicine to take. Do not take more medicine than directed. Call emergency for help if you have problems breathing. The medicine will cause constipation. Try to have a bowel movement at least every 2 to 3 days. If you do not have a bowel movement for 3 days, call your doctor or health healthcare insurance sales agent. Too much acetaminophen can be very dangerous. Do not take Tylenol (acetaminophen) or medicines that contain acetaminophen with this medicine. Many non-prescription medicines contain acetaminophen. Always read the labels carefully. Ketorolac Tromethamine Oral tablet What is this medicine? KETOROLAC (acacia toe ROLE ak) is a non-steroidal anti-inflammatory drug (NSAID). It is used for a short while to treat moderate to severe pain, including pain after surgery. It should not be used for more than 5 days. How should I use this medicine? Take this medicine by mouth with a full glass of water. Follow the directions on the prescription label. Take your medicine at regular intervals. Do not take your medicine more often than directed. Do not take more than the recommended dose. A special MedGuide will be given to you by the pharmacist with each prescription and refill. Be sure to read this information carefully each time. Talk to your back seam stitcher regarding the use of this medicine in children. While this drug may be prescribed for children as young as 16 years of age for selected conditions, precautions do apply. Patients over 65 years old may have a stronger reaction and need a smaller dose. What side effects may I notice from receiving this medicine? Side effects that you should report to your doctor or health healthcare insurance sales agent as soon as possible: allergic reactions like skin rash, itching or hives, swelling of the face, lips, or tongue black or tarry stools breathing problems changes in vision chest pain high blood pressure nausea or vomiting redness, blistering, peeling or loosening of the skin, including inside the mouth severe abdominal pain slurred speech or weakness on one side of the body unexplained weight gain or swelling unusual bleeding or bruising unusually weak or tired yellowing of eyes or skin Side effects that usually do not require medical attention (report to your doctor or health healthcare insurance sales agent if they continue or are bothersome): diarrhea dizziness headache heartburn What may interact with this medicine? Do not take this medicine with any of the following medications: aspirin and aspirin-like medicines cidofovir methotrexate NSAIDs, medicines for pain and inflammation, like ibuprofen or naproxen pemetrexed probenecid This medicine may also interact with the following medications: alcohol alendronate alprazolam carbamazepine cyclosporine diuretics flavocoxid fluoxetine ginkgo lithium medicines for high blood pressure like enalapril medicines that affect platelets like pentoxifylline medicines that treat or prevent blood clots like heparin, warfarin muscle relaxants phenytoin steroid medicines like prednisone or cortisone thiothixene What if I miss a dose? If you miss a dose, take it as soon as you can. If it is almost time for your next dose, take only that dose. Do not take double or extra doses. Where should I keep my medicine? Keep out of the reach of children. Store at room temperature between 20 and 25 degrees C (68 and 77 degrees F). Throw away any unused medicine after the expiration date. What should I tell my health care provider before I take this medicine? They need to know if you have any of these conditions: asthma bleeding problems like hemophilia cigarette smoker drink more than 3 alcohol containing drinks a day heart disease or circulation problems such as heart failure or leg edema (fluid retention) high blood pressure kidney disease liver disease stomach bleeding or ulcers an unusual or allergic reaction to ketorolac, aspirin, other NSAIDs, other medicines, foods, dyes, or preservatives or trying to get breast-feeding What should I watch for while using this medicine? Tell your doctor or health healthcare insurance sales agent if your pain does not get better. Talk to your doctor before taking another medicine for pain. Do not treat yourself. This medicine does not prevent heart attack or stroke. In fact, this medicine may increase the chance of a heart attack or stroke. The chance may increase with longer use of this medicine and in people who have heart disease. If you take aspirin to prevent heart attack or stroke, talk with your doctor or health healthcare insurance sales agent. Do not take medicines such as ibuprofen and naproxen with this medicine. Side effects such as stomach upset, nausea, or ulcers may be more likely to occur. Many medicines available without a prescription should not be taken with this medicine. This medicine can cause ulcers and bleeding in the stomach and intestines at any time during treatment. Do not smoke cigarettes or drink alcohol. These increase irritation to your stomach and can make it more susceptible to damage from this medicine. Ulcers and bleeding can happen without warning symptoms and can cause . You may get drowsy or dizzy. Do not drive, use machinery, or do anything that needs mental alertness until you know how this medicine affects you. Do not stand or sit up quickly, especially if you are an older patient. This reduces the risk of dizzy or fainting spells. This medicine can cause you to bleed more easily. Try to avoid damage to your teeth and gums when you brush or floss your teeth. You have been given the following additional information: Vomiting (6Y-Adult) Flank Pain, Uncertain Cause Ondansetron Oral disintegrating tablet Nitrofurantoin, Nitrofurantoin, Macrocrystalline Oral capsule Hydrocodone Bitartrate, Acetaminophen Oral tablet Ketorolac Tromethamine Oral tablet (Electronically signed by Ana Torres A.R.N.P. 07/22/2016 15:30)
--- NOTE | 2016-07-22 15:30 | ED MED RECONCILIATION SUMMARY ---
Patient: BERHANE WOLFE Medication Reconciliation Report [facility] VisitID: [id number] [address] [place] [place] [address] 31y, F Registration Date/Time: 07/21/2016 Weight: 89.8 kg Height/Length: 59 in. BMI: 40.0 ALLERGIES: Sulfa Antibiotics The patient's Home Medications are listed below: THE FOLLOWING MEDICATIONS NEED TO BE RECONCILED: Albuterol inhaler prn The source(s) of the original Home Medication information: patient The following Medications were given to the patient in the Emergency Department: IV NS IV Fluids bolus 0, then 1000 mL/hr, administered: 07/21/2016 9:42:00 PM Toradol [IVP] IVP 30 mg, administered: 07/21/2016 9:42:00 PM Zofran [IVP] IVP 4 mg, administered: 07/21/2016 9:42:00 PM Hydrocodone-APAP [PO] PO 1 tab, administered: 07/21/2016 11:06:00 PM The following Medications were prescribed to the patient: Zofran 4 mg: Take 1 orally every six hours as needed for nausea/vomiting. Dispense ten (10). No refills. Substitution is permissible. -- Ana Torres, A.R.N.P. Macrobid 100 mg: Take 1 capsule orally every 12 hours for 7 days. No refills. Substitution is permissible. -- Ana Torres, A.R.N.P. [place] 5 mg / 325 mg tablets: take 1 to 2 orally every 6 hours as needed for pain. Dispense fifteen (15). No refills. Substitution is permissible. -- Ana Torres, A.R.N.P. Toradol 10 mg tablets: Take 1 tablet orally every 6 hours as needed. Dispense fifteen (15). No refills. Substitution is permissible. -- Ana Torres, A.R.N.P. Flomax 0.4 mg: take 1 orally every 24 hours. Dispense fifteen (15). No refills. Substitution is permissible. -- Ana Torres, A.R.N.P.
--- NOTE | 2016-07-22 15:30 | ED MAR SUMMARY ---
..... Medication Administration Record [facility] [address] [place] [place] [address] Patient: BERHANE WOLFE Visit ID: [id number] 31y, F Weight: 89.8 kg Height/Length: 59 in BMI: 40 ALLERGIES: Sulfa Antibiotics Start 21:42 07/21/2016 Lis Carmona R.N., Stop 23:07 07/21/2016 Lis Carmona R.N. Medication Administered: IV NS (SALINE), Dose: IV Fluids over 1 hour(s), Rate: 1000 mL/hr, Dispensed: 1000 mL bag, Site: #1 right AC. Medication Ordered: IV NS : initial bolus 1000 mL (1000 mL/hr), then none - (NOW). Given :07/21/2016 Lis Carmona R.N. Medication Administered: TORADOL [IVP], Dose: 30 mg IVP over 1 minute(s), Site: #1 right AC. Medication Ordered: Toradol IV 30 mg (NOW). Given :07/21/2016 Lis Carmona R.N. Medication Administered: ZOFRAN [IVP] (ONDANSETRON HCL), Dose: 4 mg IVP over 2 minute(s), Site: #1 right AC. Medication Ordered: Zofran IV 4 mg (NOW). Given 23:06 07/21/2016 Lis Carmona R.N. Medication Administered: HYDROCODONE-APAP [PO] (HYDROCODONE-ACETAMINOPHEN), Dose: 1 tab 5/325 mg Tablets PO. Medication Ordered: Hydrocodone-APAP PO 5/325 mg (NOW, HIGH ALERT MEDICATION).
--- NOTE | 2016-07-22 15:30 | ED MED RECONCILIATION SUMMARY ---
Patient: BERHANE WOLFE Medication Reconciliation Report [facility] VisitID: [id number] [address] [place] [address] 31y, F Registration Date/Time: 07/21/2016 Weight: 89.8 kg Height/Length: 59 in. BMI: 40.0 ALLERGIES: Sulfa Antibiotics The patient's Home Medications are listed below: THE FOLLOWING MEDICATIONS NEED TO BE RECONCILED: Albuterol inhaler prn The source(s) of the original Home Medication information: patient The following Medications were given to the patient in the Emergency Department: IV NS IV Fluids bolus 0, then 1000 mL/hr, administered: 07/21/2016 9:42:00 PM Toradol [IVP] IVP 30 mg, administered: 07/21/2016 9:42:00 PM Zofran [IVP] IVP 4 mg, administered: 07/21/2016 9:42:00 PM Hydrocodone-APAP [PO] PO 1 tab, administered: 07/21/2016 11:06:00 PM The following Medications were prescribed to the patient: Zofran 4 mg: Take 1 orally every six hours as needed for nausea/vomiting. Dispense ten (10). No refills. Substitution is permissible. -- Ana Torres, A.R.N.P. Macrobid 100 mg: Take 1 capsule orally every 12 hours for 7 days. No refills. Substitution is permissible. -- Ana Torres, A.R.N.P. [place] 5 mg / 325 mg tablets: take 1 to 2 orally every 6 hours as needed for pain. Dispense fifteen (15). No refills. Substitution is permissible. -- Ana Torres, A.R.N.P. Toradol 10 mg tablets: Take 1 tablet orally every 6 hours as needed. Dispense fifteen (15). No refills. Substitution is permissible. -- Ana Torres, A.R.N.P. Flomax 0.4 mg: take 1 orally every 24 hours. Dispense fifteen (15). No refills. Substitution is permissible. -- Ana Torres, A.R.N.P.
== END 2016-07-21 23:11 | disposition home or self-care (01) ==
LOC: ED SRH 20:50
DX: R10.12 Left upper quadrant pain (principal); R11.2 Nausea with vomiting, unspecified; Z87.891 Personal history of nicotine dependence
CPT/HCPCS: 90004; 90100; 92235; 92530; 92760; 92761; 92762; 92763; 92764; 92765; 92766; 92767; 93070; 95059

== ENCOUNTER 2016-09-08 02:49 | Emergency (ER) | payer OTHER ==
--- NOTE | 2016-09-08 04:30 | ED ORDER SUMMARY ---
..... Patient: BERHANE WOLFE OrderSheet [facility] VisitID: [id number] [place] [address] 31y, F Registration Date/Time: 09/08/2016 ORDER SHEET Weight: 89.8 kg (stated) Allergies: Sulfa Antibiotics GENERAL ORDERS: CBC w Diff Urgent (03:11 09/08/2016 Katia Robb) (3:12 Lacey R.N.) CMP Urgent (03:11 09/08/2016 Katia Robb) (3:12 Lacey R.N.) UA-Culture if indicated Urgent (03:09/08/2016 Katia Robb) (3:12 Lacey Timmons.N.) Urine Drug Screen Urgent (03:11 09/08/2016 Katia Robb) (3:12 Lacey Timmons.N.) Urine Urgent (03:11 09/08/2016 Katia Robb) (3:12 Lacey R.N.) CT Abd/Pel wo Cont (Left flank) Urgent (03:43 09/08/2016 Katia Robb) (3:54 Lacey R.N.) MEDICATION ORDERS: IV FLUIDS: Toradol IV 30 mg (NOW) (03:06 09/08/2016 Katia Robb) (3:15 Lacey RTapanN.) Zofran IV 4 mg (NOW) (03:06 09/08/2016 Katia Robb) (3:14 Lacey Timmons.N.) IV NS : initial bolus none -, then 1000 mL/hr for X1 (NOW) (03:07 09/08/2016 Katia Robb) (3:14 Lacey R.N.) Ceftriaxone IV 1 gm/50mL (NOW) (04:24 09/08/2016 Katia Robb) (Ack 4:26 Lacey R.N.) (4:31 Lacey R.N.) ORDER SHEET NOTES: [Electronically signed by Reece Rodrigez Dr. (04:31 09/08/2016)] [Electronically signed by Carlie Harris R.N. (04:59 09/08/2016)] [Electronically locked/signed by Carlie Harris R.N. (04:59 09/08/2016)]
--- NOTE | 2016-09-08 04:30 | ED ORDER SUMMARY ---
..... Patient: BERHANE WOLFE OrderSheet [facility] VisitID: [id number] [place] [address] 31y, F Registration Date/Time: 09/08/2016 ORDER SHEET Weight: 89.8 kg (stated) Allergies: Sulfa Antibiotics GENERAL ORDERS: CBC w Diff Urgent (03:11 09/08/2016 Katia Robb) (3:12 Lacey R.N.) CMP Urgent (03:11 09/08/2016 Katia Robb) (3:12 Lacey R.N.) UA-Culture if indicated Urgent (03:09/08/2016 Katia Robb) (3:12 Lacey Timmons.N.) Urine Drug Screen Urgent (03:11 09/08/2016 Katia Robb) (3:12 Lacey Timmons.N.) Urine Urgent (03:11 09/08/2016 Katia Robb) (3:12 Lacey R.N.) CT Abd/Pel wo Cont (Left flank) Urgent (03:43 09/08/2016 Katia Robb) (3:54 Lacey R.N.) MEDICATION ORDERS: IV FLUIDS: Toradol IV 30 mg (NOW) (03:06 09/08/2016 Katia Robb) (3:15 Lacey RTapanN.) Zofran IV 4 mg (NOW) (03:06 09/08/2016 Ktaia Robb) (3:14 Lacey Timmons.N.) IV NS : initial bolus none -, then 1000 mL/hr for X1 (NOW) (03:07 09/08/2016 Katia Robb) (3:14 Lacey R.N.) Ceftriaxone IV 1 gm/50mL (NOW) (04:24 09/08/2016 Katia Robb) (Ack 4:26 Lacey R.N.) (4:31 Lacey R.N.) ORDER SHEET NOTES: [Electronically signed by Reece Rodrigez Dr. (04:31 09/08/2016)] [Electronically signed by Carlie Harris R.N. (04:59 09/08/2016)] [Electronically locked/signed by Carlie Harris R.N. (04:59 09/08/2016)]
--- NOTE | 2016-09-08 04:30 | ED NURSING NOTES ---
Clinical Report - Nurses [facility] [address] [place] [address] 09/08/2016 2:48 Patient: BERHANE WOLFE TRIAGE Triage time 02:53. Acuity: LEVEL 3. Chief Complaint: ABDOMINAL PAIN, NAUSEA and VOMITING. --02:59 Carlie Harris R.N. 02:53 09/08/16. BP: 117/89 taken on the left arm, while lying. HR: 129. RR: 20. O2 saturation: 99%. Temp: 98 F. Pain level now: 02/07. --02:59 Carlie Harris R.N. Weight: 89.8 kg stated. Height/Length: 59 inches Per Patient. BMI: 40. --02:57 Carlie Harris R.N. Medications Albuterol Sulfate Inhalation 2 puffs, PRN. --02:55 Carlie Harris R.N. Allergies Sulfa Antibiotics. Definite Severe(hives) --02:56 Carlie Harris R.N. History Arrived by private vehicle. Historian: patient. Unaccompanied. Primary physician (jasmeet). This started just prior to arrival. Onset. (about 2 AM). ( vomited 2 times, left sided abd pain and flank pain). She has had nausea, vomiting and abdominal pain. 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 PAST MEDICAL HX: Immunizations: up-to-date. Last normal menstrual period- July 20 2016. 3. Para 3. Sexual history - sexually active. Has had a tubal ligation. Denies current . SOCIAL HX: Former smoker, end date 2014. Occasional alcohol use; consumes beer occasionally, liquor occasionally and wine occasionally. History of occasional drug use: marijuana. Recently used drugs yesterday. No recent travel. No known contact with a sick individual. ABUSE ASSESSMENT: No report of abuse. SELF HARM ASSESSMENT: A self harm assessment was performed. The patient answered "no" to the question "Have you recently felt down, depressed, or hopeless?", "Have you noticed less interest or pleasure in doing things?", "Do you have thoughts of harming or killing yourself?", "Are you here because you tried to hurt yourself?", "Have you ever tried to hurt yourself before today?", "Have you recently had thoughts about harming or killing others?" and "Do you have any dangerous items in your possession?". --02:59 Carlie Harris R.N. PROBLEMS: Vomiting. Flank Pain. Nephrolithiasis. Sinus Tachycardia. Acidosis. Asthma. --02:56 Carlie Harris R.N. ADDITIONAL SURGERIES: . Tubal Ligation. --02:56 Carlie Harris R.N. Interventions ID band on patient. --02:59 Carlie Harris R.N. PHYSICAL ASSESSMENT Ambulatory to room. GENERAL / NEURO / PSYCH: Alert. Oriented X 4. Appears in pain and anxious. HEENT: Mucous membranes are pink. RESPIRATORY: Respirations not labored. Breath sounds within normal limits. CVS: Normal sinus rhythm noted. Cardiac rhythm: sinus tachycardia. Capillary refill less than 2 seconds. GI / : The patient has had nausea. Abdominal tenderness (Left flank pain). Bowel sounds within normal limits. SKIN: Skin is warm and dry. --03:01 Carlie Harris R.N. NURSING PROGRESS NOTES Patient gowned. Two patient identifiers checked. Call light placed in reach. Side rails up x 1. Bed placed in lowest position. Brakes of bed on. --03:01 Carlie Harris R.N. Patient ready for evaluation- chart flagged. --03:01 Carlie Harris R.N. Patient ID band checked for patient name and birthdate. Instructions provided to collect clean catch urine and patient verbalized understanding urine collected with return of su-colored clear urine; sample sent to lab for urinalysis. Specimen labeled in the presence of the patient. --03:01 Carlie Harris R.N. 03:05 09/08/2016 Site #1 started via IV in the right antecubital space with an 20g angiocath, with aseptic technique and good blood return; one attempt. Blood drawn: rainbow set. Labeled in the presence of the patient and sent to the lab. Saline lock flushed with 10 mL saline. --03:13 Carlie Harris R.N. Patient transported to [place] by stretcher with tech. (03:53). --03:55 Carlie Harris R.N. 04:31 09/08/2016 Started 1 gm of Ceftriaxone IVPB in bag #1 50 mL; over 20 minute(s) via site #1 via IV pump. Allergies verified and confirmed 5 rights. IV patency established. IV site checked: no pain, redness, or swelling. IV flushed thoroughly pre- and post-medication administration. --04:31 Carlie Harris R.N. DISPOSITION / DISCHARGE 03:14 09/08/2016 Started bag #1 1000 mL IV Fluids IV NS (Saline); bolus of 1000 mL wide open then over 1 hour(s) via site #1. Allergies verified and confirmed 5 rights. IV patency established. IV site checked: no pain, redness, or swelling. IV flushed thoroughly pre- and post-medication administration. --03:14 Carlie Harris R.N. 03:14 09/08/2016 Zofran (Ondansetron HCl) IVP 4 mg given over 2 minute(s) via site #1. Allergies verified and confirmed 5 rights. IV patency established. IV site checked: no pain, redness, or swelling. IV flushed thoroughly pre- and post-medication administration. IVP given by RN. --03:14 Carlie Harris R.N. 03:15 09/08/2016 Toradol IVP 30 mg given over 2 minute(s) via site #1. Allergies verified and confirmed 5 rights. IV patency established. IV site checked: no pain, redness, or swelling. IV flushed thoroughly pre- and post-medication administration. IVP given by RN. --03:15 Carlie Harris R.N. 04:50 09/08/2016 Site #1 removed upon discharge. Catheter intact. Manual pressure and bandage applied. --04:57 Carlie Harris R.N. 04:50 09/08/2016 IV Fluids IV NS Discontinued: bag #1 completed upon discharge. Total amount infused: 1000 mL. IV patency established. IV site checked: no pain, redness, or swelling. IV flushed thoroughly. --04:56 Carlie Harris R.N. 04:50 09/08/2016 Ceftriaxone IVPB Discontinued: bag #1 completed upon discharge. Total amount infused: 50 mL. IV patency established. IV site checked: no pain, redness, or swelling. IV flushed thoroughly. --04:56 Carlie Harris R.N. Condition at departure: improved. No learning barriers present. Discharge instructions provided and reviewed with the patient. Reviewed medication(s) side effects, precautions, dosing and course information. Prescription(s) given to the patient. Reviewed referral to family practice for followup. The patient has no activity restrictions. Patient verbalized understanding. Written instructions provided in Croatian. No note given. The patient was discharged home and unaccompanied at time of discharge. She left the Emergency Department ambulatory and via private vehicle. Patient driving. --04:58 Carlie Harris R.N. 04:55 09/08/16. BP: 125/85 taken on the left arm, while lying. HR: 99 (regular). RR: 18 (regular and unlabored). O2 saturation: 98% on room air. Temp: deferred. Pain level now: 06/10. --04:58 Carlie Harris R.N. Departure time: 0450. --04:58 Carlie Harris R.N. Locked/Released at 09/08/2016 4:59 by Carlie Harris R.N.
--- NOTE | 2016-09-08 04:30 | ED CLINICAL REPORT ---
Clinical Report - Physicians/Mid Levels [facility] [address] [place] [address] 09/08/2016 2:48 Patient: BERHANE WOLFE Time Seen: 02:57; initial patient contact. Arrived- By private vehicle. Historian- patient. HISTORY OF PRESENT ILLNESS Chief Complaint: FLANK PAIN. At its maximum, severity described as severe. When seen in the E.D., severity described as severe. Modifying factors. Not worsened by anything. Not relieved by anything. It is described as located in the left abdomen and the left flank and radiating to the groin. This started today and is still present and worsening. It was abrupt in onset and has been waxing/waning. The patient has had nausea and vomiting. No loss of appetite or diarrhea. Similar symptoms previously: Many times. Recent medical care: Not recently seen/assessed. REVIEW OF SYSTEMS No constipation, fever or chills. All systems otherwise negative, except as recorded above. PAST HISTORY Vomiting. Flank Pain. Nephrolithiasis. Sinus Tachycardia. Acidosis. Asthma. SURGERIES: . Tubal Ligation. SOCIAL HISTORY Former smoker. Regular alcohol use. History of drug use: marijuana. ADDITIONAL NOTES The nursing notes have been reviewed. PHYSICAL EXAM Vital Signs: 09/08/2016 02:53 BP: 117/89. HR: 129. RR: 20. O2 saturation: 99%. Temp: 98 F. Pain level now: 10/10. Have been reviewed. Blood pressure normal. Tachycardic. Respiratory rate normal. Temperature normal. Oxygen saturation normal. Appearance: Alert. Oriented X3. Appears to be in pain. Eyes: Eyes normal inspection. ENT: Dry mucous membranes present. CVS: Tachycardia. Heart sounds normal. Rhythm normal. Respiratory: No respiratory distress. Breath sounds normal. Abdomen: Soft. Moderate tenderness in the left side of the abdomen with guarding present. No rebound tenderness. Bowel sounds normal. Back: Moderate CVA tenderness on the left. Skin: Skin warm and dry. Normal skin color. No rash. Extremities: No lower extremity edema. Neuro: Oriented X 3. LABS, X-RAYS, AND EKG Abdominal CT: 2 mm mildly obstructive stone in L distal ureter w/ mild hydronephrosis/ureter. Study type: renal stone evaluation. Laboratory Tests: UA-Culture if indicated: (CHETAN: 09/08/2016 02:55) ( [facility] 09/08/2016 03:32) Final results Test Result Flag Units (Reference) URINE COLOR RED URINE APPEARANCE TURBID URINE GLUCOSE NEGATIVE (NEGATIVE) URINE BILIRUBIN NEGATIVE (NEGATIVE) URINE KETONE NEGATIVE (NEGATIVE) URINE SPECIFIC GRAVITY 1.025 (1.010-1.030) URINE PH 6.0 (5.0-8.0) URINE PROTEIN 1+ (NEGATIVE) URINE UROBILINOGEN 0.2 EU/dL (0.2-1.0) URINE NITRITE NEGATIVE (NEGATIVE) URINE BLOOD 3+ (NEGATIVE) URINE LEUK ESTERASE NEGATIVE (NEGATIVE) URINE RBC >100 rbc/hpf (0-1) URINE WBC 3-5 wbc/hpf (0-1) URINE EPITHELIAL CELLS 5-10 EPI/hpf (0-5) URINE BACTERIA MODERATE (2+ TO 3+) (NONE SEEN) URINE COMMENT CULTURE INDICATED URINE CULTURES ARE SET-UP BASED ON THE FOLLOWING CRITERIA:POSITIVE NITRITEPOSITIVE LEUKOCYTE ESTERASEGREATER THAN 10 WHITE BLOOD CELLSMODERATE (2+) OR GREATER BACTERIA Urine: (CHETAN: 09/08/2016 02:55) ( [facility] 09/08/2016 03:27) Final results Test Result Flag Units (Reference) URINE NEGATIVE CBC w Diff: (CHETAN: 09/08/2016 02:55) ( [facility] 09/08/2016 03:27) Final results Test Result Flag Units (Reference) WHITE BLOOD COUNT 16.5 H K/uL (4.5-11.5) RED BLOOD COUNT 4.59 M/uL (4.00-5.20) HEMOGLOBIN 11.9 L gm/dL (12.0-16.0) HEMATOCRIT 36.1 % (36.0-46.0) MEAN CELL VOLUME 79 L fL (80-100) MEAN CORPUSCULAR HGB 26 pg (26-34) MEAN CORPUSCULAR HGB CONC 33 g/dL (31-37) RED CELL DISTRIBUTION WIDTH 15.4 H % (11.6-14.8) PLATELET COUNT 605 H K/uL (150-400) NEUTROPHIL % 66.4 % (50-75) LYMPH % 28.8 % (25-40) MONO % 1.6 L % (3-14) EOSINOPHIL % 2.6 % (0-4) BASOPHIL % 0.6 % (0-2) Urine Drug Screen: (CHETAN: 09/08/2016 02:55) ( [facility] 09/08/2016 03:38) Final results Test Result Flag Units (Reference) AMPHETAMINE/METHAMPHETAMINE NEGATIVE (NEGATIVE) BARBITURATE NEGATIVE (NEGATIVE) BENZODIAZEPINE NEGATIVE (NEGATIVE) CANNABINOID POSITIVE H (NEGATIVE) COCAINE NEGATIVE (NEGATIVE) ECSTASY NEGATIVE (NEGATIVE) METHADONE NEGATIVE (NEGATIVE) OPIATE NEGATIVE (NEGATIVE) The urine drug screen is a qualitative screening test fordrug overdose and abuse. All screen results should beconsidered as presumptive.Drugs screened for are as follows:BenzodiazepinesCocaineAmphetamines/MetamphetaminesTHC (Tetrahydrocannabinol)OpiatesBarbituratesEcstasyMethadonePositive results are unconfirmed. For confirmation, notifythe lab for the specimen to be sent to the reference lab.All confirmations must be performed by a differentmethodology.The ingestion of natural herbal and plant productscontaining Ephedra/Ephedra metabolites can produce in urineone or more substances capable of cross reacting withamphetamine/methamphetamine immunoassays. These testsprovide a preliminary result only. A more specificalternative chemical method must be used to obtain aconfirmed analytical result. CMP: (CHETAN: 09/08/2016 02:55) ( [facility] 09/08/2016 03:44) Final results Test Result Flag Units (Reference) GLUCOSE 152 H mg/dL (70-110) BUN 13 mg/dL (7-18) CREATININE 1.1 mg/dL (0.6-1.3) Estimated GFR >60 mL/min Estimated GFR- >60 mL/min Note: Persistent reduction over 3 months in eGFR<60 mL/min/1.73 m2 defines CKD. Patients with eGFR values>=60 mL/min/1.73 m2 may also have CKD if evidence ofpersistent proteinuria. Additional information may be foundat www.kidney.org. SODIUM 139 mmol/L (136-145) POTASSIUM 3.7 mmol/L (3.5-5.1) CHLORIDE 104 mmol/L (98-107) CARBON DIOXIDE 22 mmol/L (21-32) CALCIUM 8.7 mg/dL (8.5-10.1) TOTAL PROTEIN 7.7 g/dL (6.4-8.2) ALBUMIN 3.3 g/dL (3.3-5.0) BILIRUBIN, TOTAL 0.2 mg/dL (0.0-1.0) ALKALINE PHOSPHATASE 99 U/L (46-116) AST (SGOT) 19 U/L (15-37) ALT (SGPT) 33 U/L (12-78) . PROGRESS AND PROCEDURES Disposition: Discharged home in good and improved condition. Condition: good. CLINICAL IMPRESSION Ureterolithiasis (single stone) in the left ureter with renal colic, hydronephrosis and urinary tract infection. INSTRUCTIONS Drink plenty of fluids. Your Current Medications: CONTINUE TAKING THE FOLLOWING MEDICATIONS: Albuterol Sulfate Inhalation : 2 puffs PRN. Prescription Medications: Hydrocodone/APAP 5mg / 325mg: take 1 orally every 6 hours as needed for pain. Dispense fifteen (15). No refill. Zofran (orally disintegrating tablets) 4 mg: take 1 orally every 6 hours as needed for nausea and vomiting. Dispense ten (10). No refill. Substitution is permissible. Levaquin 500 mg: take 1 tab orally every day for 7 days. No refills. Substitution is permissible. Follow-up: Follow up with your doctor in about one day. Call for an appointment. Screening today revealed the patient's blood pressure to be in the pre-hypertensive range. (Electronically signed by Reece Rodrigez Dr. 09/08/2016 4:31)
--- NOTE | 2016-09-08 04:59 | ED DISCHARGE INSTRUCTIONS ---
Patient: BERHANE WOLFE General Instructions [facility] VisitID: [id number] [place] [address] 31y, F Registration Date/Time: 09/08/2016 Ureterolithiasis (single stone) in the left ureter with renal colic, hydronephrosis and urinary tract infection. INSTRUCTIONS Drink plenty of fluids. Your Current Medications: CONTINUE TAKING THE FOLLOWING MEDICATIONS: Albuterol Sulfate Inhalation : 2 puffs PRN. Prescription Medications: Hydrocodone/APAP 5mg / 325mg: take 1 orally every 6 hours as needed for pain. Dispense fifteen (15). No refill. Zofran (orally disintegrating tablets) 4 mg: take 1 orally every 6 hours as needed for nausea and vomiting. Dispense ten (10). No refill. Substitution is permissible. Levaquin 500 mg: take 1 tab orally every day for 7 days. No refills. Substitution is permissible. Follow-up: Follow up with your doctor in about one day. Call for an appointment. Screening today revealed the patient's blood pressure to be in the pre-hypertensive range. ADDITIONAL INFORMATION Kidney Stone (W/ Colic) The sharp cramping pain and nausea/vomiting that you have is due to a small stone which has formed in the kidney and is now passing down a narrow tube (ureter) on its way to your bladder. Once it reaches your bladder, the pain will stop. The stone may pass in your urine stream in one piece. [The size may be 1/16" to 1/4" (1-6mm)]. Or, the stone may also break up into carlos fragments which you may not even notice. Once you have had a kidney stone, you are at risk for developing another one in the future. Home Care: Drink plenty of fluids (at least 8 to 10 glasses of water a day). Most stones will pass on their own, but may take from a few hours to a few days. Sometimes the stone is too large to pass by itself and special methods will have to be used to remove the stone. Each time you urinate, do so in a jar. Pour the urine from the jar through the strainer and into the toilet. Continue doing this until 24 hours after your pain stops. By then, if there was a kidney stone, it should pass from your bladder. Some stones dissolve into sand-like particles and pass right through the strainer. In that case, you wont ever see a stone. Save any stone that you find in the strainer and bring it to your doctor for analysis. It may be possible to prevent certain types of stones from forming. Therefore, it is important to know what kind of stone you have. Try to stay as active as possible since this will help the stone pass. Do not stay in bed unless your pain prevents you from getting up. You may notice a red, pink or brown color to your urine. This is normal while passing a kidney stone. Follow Up with your doctor or return to this facility if the pain lasts more than 48 hours. Get Prompt Medical Attention if any of the following occur: Pain that is not controlled by the medicine given Repeated vomiting or unable to keep down fluids Weakness, dizziness or fainting Fever of 100.4F (38C) or higher, or as directed by your healthcare provider Passage of solid red or brown urine (can't see through it) or urine with lots of blood clots Unable to pass urine for 8 hours and increasing bladder pressure Hydrocodone Bitartrate, Acetaminophen Oral tablet What is this medicine? ACETAMINOPHEN; HYDROCODONE (a set a ANGIE jocelin fen; som droe KOE done) is a pain reliever. It is used to treat mild to moderate pain. How should I use this medicine? Take this medicine by mouth. Swallow it with a full glass of water. Follow the directions on the prescription label. If the medicine upsets your stomach, take the medicine with food or milk. Do not take more than you are told to take. Talk to your [employer] worker regarding the use of this medicine in children. This medicine is not approved for use in children. What side effects may I notice from receiving this medicine? Side effects that you should report to your doctor or health managed care director as soon as possible: allergic reactions like skin rash, itching or hives, swelling of the face, lips, or tongue breathing problems confusion feeling faint or lightheaded, falls stomach pain yellowing of the eyes or skin Side effects that usually do not require medical attention (report to your doctor or health managed care director if they continue or are bothersome): nausea, vomiting stomach upset What may interact with this medicine? alcohol antihistamines isoniazid medicines for depression, anxiety, or psychotic disturbances medicines for sleep muscle relaxants naltrexone narcotic medicines (opiates) for pain phenobarbital ritonavir tramadol What if I miss a dose? If you miss a dose, take it as soon as you can. If it is almost time for your next dose, take only that dose. Do not take double or extra doses. Where should I keep my medicine? Keep out of the reach of children. This medicine can be abused. Keep your medicine in a safe place to protect it from theft. Do not share this medicine with anyone. Selling or giving away this medicine is dangerous and against the law. Store at room temperature between 15 and 30 degrees C (59 and 86 degrees F). Protect from light. Keep container tightly closed. Throw away any unused medicine after the expiration date. Discard unused medicine and used packaging carefully. Pets and children can be harmed if they find used or lost packages. What should I tell my health care provider before I take this medicine? They need to know if you have any of these conditions: brain tumor Crohn's disease, inflammatory bowel disease, or ulcerative colitis drink more than 3 alcohol-containing drinks per day drug abuse or addiction head injury heart or circulation problems kidney disease or problems going to the bathroom liver disease lung disease, asthma, or breathing problems an unusual or allergic reaction to acetaminophen, hydrocodone, other opioid analgesics, other medicines, foods, dyes, or preservatives or trying to get breast-feeding What should I watch for while using this medicine? Tell your doctor or health managed care director if your pain does not go away, if it gets worse, or if you have new or a different type of pain. You may develop tolerance to the medicine. Tolerance means that you will need a higher dose of the medicine for pain relief. Tolerance is normal and is expected if you take the medicine for a long time. Do not suddenly stop taking your medicine because you may develop a severe reaction. Your body becomes used to the medicine. This does NOT mean you are addicted. Addiction is a behavior related to getting and using a drug for a non-medical reason. If you have pain, you have a medical reason to take pain medicine. Your doctor will tell you how much medicine to take. If your doctor wants you to stop the medicine, the dose will be slowly lowered over time to avoid any side effects. You may get drowsy or dizzy when you first start taking the medicine or change doses. Do not drive, use machinery, or do anything that may be dangerous until you know how the medicine affects you. Stand or sit up slowly. There are different types of narcotic medicines (opiates) for pain. If you take more than one type at the same time, you may have more side effects. Give your health care provider a list of all medicines you use. Your doctor will tell you how much medicine to take. Do not take more medicine than directed. Call emergency for help if you have problems breathing. The medicine will cause constipation. Try to have a bowel movement at least every 2 to 3 days. If you do not have a bowel movement for 3 days, call your doctor or health managed care director. Too much acetaminophen can be very dangerous. Do not take Tylenol (acetaminophen) or medicines that contain acetaminophen with this medicine. Many non-prescription medicines contain acetaminophen. Always read the labels carefully. Ondansetron Oral disintegrating tablet What is this medicine? ONDANSETRON (on MUNA se cristhian) is used to treat nausea and vomiting caused by chemotherapy. It is also used to prevent or treat nausea and vomiting after surgery. How should I use this medicine? These tablets are made to dissolve in the mouth. Do not try to push the tablet through the foil backing. With dry hands, peel away the foil backing and gently remove the tablet. Place the tablet in the mouth and allow it to dissolve, then swallow. While you may take these tablets with water, it is not necessary to do so. Talk to your [employer] worker regarding the use of this medicine in children. Special care may be needed. What side effects may I notice from receiving this medicine? Side effects that you should report to your doctor or health managed care director as soon as possible: allergic reactions like skin rash, itching or hives, swelling of the face, lips, or tongue breathing problems dizziness fast or irregular heartbeat feeling faint or lightheaded, falls fever and chills swelling of the hands and feet tightness in the chest Side effects that usually do not require medical attention (report to your doctor or health managed care director if they continue or are bothersome): constipation or diarrhea headache What may interact with this medicine? Do not take this medicine with any of the following medications: -apomorphine -cisapride -dofetilide -dronedarone -pimozide -thioridazine -ziprasidone This medicine may also interact with the following medications: -carbamazepine -phenytoin -rifampicin -tramadol -other medicines that prolong the QT interval (cause an abnormal heart rhythm) What if I miss a dose? If you miss a dose, take it as soon as you can. If it is almost time for your next dose, take only that dose. Do not take double or extra doses. Where should I keep my medicine? Keep out of the reach of children. Store between 2 and 30 degrees C (36 and 86 degrees F). Throw away any unused medicine after the expiration date. What should I tell my health care provider before I take this medicine? They need to know if you have any of these conditions: heart disease history of irregular heartbeat liver disease low levels of magnesium or potassium in the blood an unusual or allergic reaction to ondansetron, granisetron, other medicines, foods, dyes, or preservatives or trying to get breast-feeding What should I watch for while using this medicine? Check with your doctor or health managed care director as soon as you can if you have any sign of an allergic reaction. Levofloxacin Oral tablet What is this medicine? LEVOFLOXACIN (jim stephens) is a quinolone antibiotic. It is used to treat certain kinds of bacterial infections. It will not work for colds, flu, or other viral infections. How should I use this medicine? Take this medicine by mouth with a full glass of water. Follow the directions on the prescription label. This medicine can be taken with or without food. Take your medicine at regular intervals. Do not take your medicine more often than directed. Do not skip doses or stop your medicine early even if you feel better. Do not stop taking except on your doctor's advice. A special MedGuide will be given to you by the pharmacist with each prescription and refill. Be sure to read this information carefully each time. Talk to your [employer] worker regarding the use of this medicine in children. While this drug may be prescribed for children as young as 6 months for selected conditions, precautions do apply. What side effects may I notice from receiving this medicine? Side effects that you should report to your doctor or health managed care director as soon as possible: -allergic reactions like skin rash or hives, swelling of the face, lips, or tongue -changes in vision -confusion, nightmares or hallucinations -difficulty breathing -irregular heartbeat, chest pain -joint, muscle or tendon pain -pain or difficulty passing urine -persistent headache with or without blurred vision -redness, blistering, peeling or loosening of the skin, including inside the mouth -seizures -unusual pain, numbness, tingling, or weakness -vaginal irritation, discharge Side effects that usually do not require medical attention (report to your doctor or health managed care director if they continue or are bothersome): -diarrhea -dry mouth -headache -stomach upset, nausea -trouble sleeping What may interact with this medicine? Do not take this medicine with any of the following medications: - arsenic trioxide - chloroquine - droperidol - medicines for irregular heart rhythm like amiodarone, disopyramide, dofetilide, flecainide, quinidine, procainamide, sotalol - some medicines for depression or mental problems like phenothiazines, pimozide, and ziprasidone This medicine may also interact with the following medications: - amoxapine -antacids - cisapride - dairy products - didanosine (ddI) buffered tablets or powder - haloperidol - multivitamins -NSAIDS, medicines for pain and inflammation, like ibuprofen or naproxen - retinoid products like tretinoin or isotretinoin - risperidone - some other antibiotics like clarithromycin or erythromycin - sucralfate - theophylline - warfarin What if I miss a dose? If you miss a dose, take it as soon as you remember. If it is almost time for your next dose, take only that dose. Do not take double or extra doses. Where should I keep my medicine? Keep out of the reach of children. Store at room temperature between 15 and 30 degrees C (59 and 86 degrees F). Keep in a tightly closed container. Throw away any unused medicine after the expiration date. What should I tell my health care provider before I take this medicine? They need to know if you have any of these conditions: cerebral disease irregular heartbeat kidney disease seizure disorder an unusual or allergic reaction to levofloxacin, other antibiotics or medicines, foods, dyes, or preservatives or trying to get breast-feeding What should I watch for while using this medicine? Tell your doctor or health managed care director if your symptoms do not improve or if they get worse. Drink several glasses of water a day and cut down on drinks that contain caffeine. You must not get dehydrated while taking this medicine. You may get drowsy or dizzy. Do not drive, use machinery, or do anything that needs mental alertness until you know how this medicine affects you. Do not sit or stand up quickly, especially if you are an older patient. This reduces the risk of dizzy or fainting spells. This medicine can make you more sensitive to the sun. Keep out of the sun. If you cannot avoid being in the sun, wear protective clothing and use a sunscreen. Do not use sun lamps or tanning beds/booths. Contact your doctor if you get a sunburn. If you are a diabetic monitor your blood glucose carefully. If you get an unusual reading stop taking this medicine and call your doctor right away. Do not treat diarrhea with [id number] products. Contact your doctor if you have diarrhea that lasts more than 2 days or if the diarrhea is severe and watery. Avoid antacids, calcium, iron, and zinc products for 2 hours before and 2 hours after taking a dose of this medicine. You have been given the following additional information: Kidney Stone W/ Colic Hydrocodone Bitartrate, Acetaminophen Oral tablet Ondansetron Oral disintegrating tablet Levofloxacin Oral tablet (Electronically signed by Reece Rodrigez Dr. 09/08/2016 4:31)
--- NOTE | 2016-09-08 04:59 | ED MED RECONCILIATION SUMMARY ---
Patient: BERHANE WOLFE Medication Reconciliation Report [facility] VisitID: [id number] [address] [place] [address] 31y, F Registration Date/Time: 09/08/2016 Weight: 89.8 kg Height/Length: 59 in. BMI: 40.0 ALLERGIES: Sulfa Antibiotics The patient's Home Medications are listed below: CONTINUE TAKING THE FOLLOWING MEDICATIONS: Albuterol Sulfate Inhalation 2 puffs, PRN The source(s) of the original Home Medication information: Not obtained. The following Medications were given to the patient in the Emergency Department: IV NS IV Fluids bolus 1000 mL wide open, administered: 09/08/2016 3:14:00 AM Zofran [IVP] IVP 4 mg, administered: 09/08/2016 3:14:00 AM Toradol [IVP] IVP 30 mg, administered: 09/08/2016 3:15:00 AM Ceftriaxone [IVPB] IVPB bolus 0, then 1 gm, administered: 09/08/2016 4:31:00 AM The following Medications were prescribed to the patient: Hydrocodone/APAP 5mg / 325mg: take 1 orally every 6 hours as needed for pain. Dispense fifteen (15). No refill. -- Reece Rodrigez Dr. Zofran (orally disintegrating tablets) 4 mg: take 1 orally every 6 hours as needed for nausea and vomiting. Dispense ten (10). No refill. Substitution is permissible. -- Reece Rodrigez Dr. Levaquin 500 mg: take 1 tab orally every day for 7 days. No refills. Substitution is permissible. -- Reece Rodrigez Dr.
--- NOTE | 2016-09-08 04:59 | ED MED RECONCILIATION SUMMARY ---
Patient: BERHANE WOLFE Medication Reconciliation Report [facility] VisitID: [id number] [address] [place] [address] 31y, F Registration Date/Time: 09/08/2016 Weight: 89.8 kg Height/Length: 59 in. BMI: 40.0 ALLERGIES: Sulfa Antibiotics The patient's Home Medications are listed below: CONTINUE TAKING THE FOLLOWING MEDICATIONS: Albuterol Sulfate Inhalation 2 puffs, PRN The source(s) of the original Home Medication information: Not obtained. The following Medications were given to the patient in the Emergency Department: IV NS IV Fluids bolus 1000 mL wide open, administered: 09/08/2016 3:14:00 AM Zofran [IVP] IVP 4 mg, administered: 09/08/2016 3:14:00 AM Toradol [IVP] IVP 30 mg, administered: 09/08/2016 3:15:00 AM Ceftriaxone [IVPB] IVPB bolus 0, then 1 gm, administered: 09/08/2016 4:31:00 AM The following Medications were prescribed to the patient: Hydrocodone/APAP 5mg / 325mg: take 1 orally every 6 hours as needed for pain. Dispense fifteen (15). No refill. -- Reece Rodrigez Dr. Zofran (orally disintegrating tablets) 4 mg: take 1 orally every 6 hours as needed for nausea and vomiting. Dispense ten (10). No refill. Substitution is permissible. -- Reece Rodrigez Dr. Levaquin 500 mg: take 1 tab orally every day for 7 days. No refills. Substitution is permissible. -- Reece Rodrigez Dr.
--- NOTE | 2016-09-08 04:59 | ED MAR SUMMARY ---
..... Medication Administration Record [facility] [address] [place] [address] Patient: BERHANE WOLFE Visit ID: [id number] 31y, F Weight: 89.8 kg Height/Length: 59 in BMI: 40 ALLERGIES: Sulfa Antibiotics Given 03:14 09/08/2016 Carlie Harris R.N. Medication Administered: ZOFRAN [IVP] (ONDANSETRON HCL), Dose: 4 mg IVP over 2 minute(s), Site: #1 right AC. Medication Ordered: Zofran IV 4 mg (NOW). Start 03:14 09/08/2016 Carlie Harris R.N., Stop 04:50 09/08/2016 Carlie Harris R.N. Medication Administered: IV NS (SALINE), Dose: IV Fluids over 1 hour(s), Bolus: 1000 mL wide open, Dispensed: 1000 mL bag, Site: #1 right AC. Medication Ordered: IV NS : initial bolus none -, then 1000 mL/hr for X1 (NOW). Given 03:15 09/08/2016 Carlie Harris R.N. Medication Administered: TORADOL [IVP], Dose: 30 mg IVP over 2 minute(s), Site: #1 right AC. Medication Ordered: Toradol IV 30 mg (NOW). Start 04:31 09/08/2016 Carlie Harris R.N., Stop 04:50 09/08/2016 Carlie Harris R.N. Medication Administered: CEFTRIAXONE [IVPB], Dose: 1 gm IVPB over 20 minute(s), Dispensed: 50 mL bag, Site: #1 right AC. Medication Ordered: Ceftriaxone IV 1 gm/50mL (NOW).
--- NOTE | 2016-09-08 04:59 | ED MAR SUMMARY ---
..... Medication Administration Record [facility] [address] [place] [address] Patient: BERHANE WOLFE Visit ID: [id number] 31y, F Weight: 89.8 kg Height/Length: 59 in BMI: 40 ALLERGIES: Sulfa Antibiotics Given 03:14 09/08/2016 Carlie Harris R.N. Medication Administered: ZOFRAN [IVP] (ONDANSETRON HCL), Dose: 4 mg IVP over 2 minute(s), Site: #1 right AC. Medication Ordered: Zofran IV 4 mg (NOW). Start 03:14 09/08/2016 Carlie Harris R.N., Stop 04:50 09/08/2016 Carlie Harris R.N. Medication Administered: IV NS (SALINE), Dose: IV Fluids over 1 hour(s), Bolus: 1000 mL wide open, Dispensed: 1000 mL bag, Site: #1 right AC. Medication Ordered: IV NS : initial bolus none -, then 1000 mL/hr for X1 (NOW). Given 03:15 09/08/2016 Carlie Harris R.N. Medication Administered: TORADOL [IVP], Dose: 30 mg IVP over 2 minute(s), Site: #1 right AC. Medication Ordered: Toradol IV 30 mg (NOW). Start 04:31 09/08/2016 Carlie Harris R.N., Stop 04:50 09/08/2016 Carlie Harris R.N. Medication Administered: CEFTRIAXONE [IVPB], Dose: 1 gm IVPB over 20 minute(s), Dispensed: 50 mL bag, Site: #1 right AC. Medication Ordered: Ceftriaxone IV 1 gm/50mL (NOW).
--- NOTE | 2016-09-08 06:25 | DIAGNOSTIC IMAGING REPORT ---
PROCEDURE: CT ABDOMEN/PELVIS W/O CONTRAST INDICATION: Left flank pain. TECHNIQUE: Noncontrast axial images were obtained of the entire abdomen and pelvis with sagittal and coronal reformations. COMPARISON: None. FINDINGS: ABDOMEN: 2 mm distal left ureteral calculus near the UVJ with mild left hydro ureteronephrosis. There are bilateral nonobstructing renal calculi (1 - 6 mm). Lung base are clear. Heart size is normal. Liver, gallbladder, pancreas, spleen and adrenal glands are normal. Normal abdominal aorta. Nonspecific bowel gas pattern. PELVIS: Normal appendix. No pelvic mass, inflammatory changes or free fluid. Diastases of the rectus muscles. No suspicious osseous lesions. IMPRESSION: 1. 2 mm distal left ureteral calculus with mild left hydroureteronephrosis 2. Bilateral nonobstructing renal calculi 3. Preliminary results submitted by Dr. Forrest, [facility] radiology. All CT scans at this facility use dose modulation, iterative reconstruction, and/or weight-based dosing when appropriate to reduce radiation dose to as low as reasonably achievable.
== END 2016-09-08 04:50 | disposition home or self-care (01) ==
LOC: ED SRH 02:49
DX: N20.1 Calculus of ureter (principal); N13.30 Unspecified hydronephrosis; N39.0 Urinary tract infection, site not specified; J45.909 Unspecified asthma, uncomplicated; Z79.899 Other long term (current) drug therapy; Z87.891 Personal history of nicotine dependence; Z88.1 Allergy status to other antibiotic agents
CPT/HCPCS: 90004; 90100; 90469; 92760; 92761; 92762; 92763; 92764; 92765; 92766; 92767; 93070; 95059